=== PATIENT | male | born 1945 | race Caucasian/White ===

== ENCOUNTER 2019-02-23 00:18 | Inpatient (IN) | payer MEDICARE ==
[2019-02-23] MEDS ORDERED: niCARdipine 20MG In NaCl 0 MG/0 ML BAG ONE (00:45)
[2019-02-23 02:35] LABS: CKMB 3.1 ng/mL (0-6.6)
[2019-02-23 06:00] LABS: Critical Call Chem Troponin I RESULT DECREASING; Troponin I 0.356 ng/mL (< 0.028)
[2019-02-23 07:47] LABS: #Basophils 0.1 thou/uL (0.0-0.2); #Eosinphils 0.3 thou/uL (0.0-0.7); #Lymphocytes 2.1 thou/uL (1.20-3.40); #Monocytes 0.8 thou/uL (0.11-0.59); #Neutrophils 6.1 thou/uL (1.40-6.50); %Basophils 0.8 % (0.0-1.0); %Eosinophils 3.5 % (0.0-10.0); %Lymphocytes 22.8 % (21.0-51.0); %Monocytes 8.2 % (0.0-10.0); %Neutrophils 64.6 % (42.0-75.0); Hemoglobin 14.8 g/dL (14.0-18.0); Mean Corpuscular HGB CONC 34.7 g/dL (32.0-36.0); Mean Corpuscular Volume 92.4 fL (78.0-98.0); Mean Platelet Volume 8.1 fL (7.4-10.4); Platelet Count 238 thou/uL (130-400); RBC Distribution Width 12.5 % (11.5-14.5); Red Blood Cell (RBC) Count 4.61 mill/uL (4.70-6.10); White Blood Cell (WBC) Count 9.4 thou/uL (4.8-10.8)
[2019-02-23] MEDS ORDERED: Ondansetron PF 4 MG/2 ML Vial IVP PRN (07:52)
[2019-02-23 07:56] VITALS: BMI 24.4
[2019-02-23 08:05] LABS: Troponin I 0.264 ng/mL (< 0.028)
[2019-02-23 08:07] LABS: ALT (SGPT) 17 U/L (8-55); AST (SGOT) 16 U/L (5-34); Albumin 4.3 g/dL (3.4-4.8); Alkaline Phosphatase 57 U/L (40-110); Anion Gap 11 mmol/L (10-20); BUN (Urea Nitrogen) 15 mg/dL (8.4-25.7); Bilirubin, Total 0.3 mg/dL (0.2-1.2); Calc. Creatinine Clearance 63 mL/min (70-130); Calcium 9.7 mg/dL (7.8-10.44); Carbon Dioxide 25 mmol/L (23-31); Chloride 105 mmol/L (98-107); Estimated GFR-MDRD 69; Globulin 2.9 g/dL (2.4-3.5); Glucose 101 mg/dL (83-110); Protein, Total 7.2 g/dL (5.8-8.1); Sodium 137 mmol/L (136-145)
[2019-02-23] MEDS ORDERED: Morphine 2 MG/ML SYRINGE SLOW IVP PRN (08:33)
[2019-02-23 08:42] LABS: Cholesterol 252 mg/dl (< 200 Desired); HDL Cholesterol 28 mg/dL (>60 Neg Risk); Triglycerides 537 mg/dL (Less than 150)
[2019-02-23] MEDS ORDERED: Enoxaparin Sodium 80 MG/0.8 ML SYRINGE SC SCH (09:00)
--- NOTE | 2019-02-23 09:15 | HP ---
PRIMARY CARE PHYSICIAN: Aashish Benavides MD CHIEF COMPLAINT: Chest pain. HISTORY OF PRESENT ILLNESS: Mr. Salas is a pleasant 73-year-old man with past medical history of bradycardia and gastroesophageal reflux disease, presented to the [place] ER late last night due to chest pain, shortness of breath, and an elevated blood pressure. The patient states that he has been having this chest pain on and off over the last week that has more so been during times of activity. He states that the pain came on quite sharp last night while he was watching television. Therefore, he had taken 2 of his 's oral nitroglycerin and called 911. The EMS Services arrived and gave the patient 4 baby aspirin and transferred him to the local [place] ER. He was found to have an elevated troponin and there was a concern for NSTEMI. Therefore, the patient was treated with full-dose Lovenox and started on topical nitroglycerin for further chest pain. He was then transferred to this hospital and en route the patient's pain resolved. His troponins had trended up from 0.276 to 0.367 and then 0.356 late last night, however, the patient remained chest pain-free with nitro. In [place], he was also found to have an elevated blood pressure, which had also improved by the time he got to [facility]. He currently denies any fever, chills, headache, blurred vision, dizziness, chest pain, palpitations, shortness of breath, abdominal pain, nausea, or vomiting. The patient denies any history of hypertension or any other heart health issues in the past. REVIEW OF SYSTEMS: All other systems reviewed and found to be negative unless mentioned in the HPI. PAST MEDICAL HISTORY: History of bradycardia and gastroesophageal reflux disease. PAST SURGICAL HISTORY: He had a cyst removed on his gum about a month ago. PSYCHIATRIC HISTORY: None. SOCIAL HISTORY: The patient denies any alcohol, tobacco, or illicit drug use. He is a former tobacco smoker, but quit more than 10 years ago. KNOWN ALLERGIES: No known drug allergies. CURRENT HOME MEDICATIONS: Nexium 20 mg as needed for heartburn. PHYSICAL EXAMINATION: VITAL SIGNS: Blood pressure 156/77, pulse 64, respirations 16, temperature 97.6, and O2 saturation 95% on room air. GENERAL: The patient is awake, alert, and oriented x3. He is currently lying comfortably in bed and in no acute distress. HEENT: Atraumatic, normocephalic. Pupils are round and reactive to light. Extraocular muscles intact. Moist mucous membranes noted. NECK: Soft and supple. Trachea midline. CARDIOVASCULAR: Positive S1 and S2. Regular rate and rhythm. No murmur auscultated. RESPIRATORY: Clear to auscultation bilaterally. No wheezes, rales, or rhonchi. ABDOMEN: Soft, nontender. Bowel sounds present. EXTREMITIES: Moves all extremities equal. Pedal and radial pulses 2+ bilaterally. Strength 5+ bilaterally. No edema noted. NEUROLOGIC: Cranial nerves II through XII grossly intact. No focal deficits noted. Speech intact and normal. Gait not assessed. SKIN: Warm, dry, and intact. No rash. No ulceration noted. PSYCHIATRIC: Good mood and affect. LABORATORY DATA: WBC 9.4, RBC 4.61, hemoglobin 14.8, hematocrit 42.6, and platelets 238. Sodium 137, potassium 4.0, anion gap 11, BUN 15, creatinine 1.05, estimated GFR 69, magnesium 2.0, AST 16, and ALT 17. CK-MB 3.1. Troponin 0.276 to 0.367, 0.356. DIAGNOSTIC IMAGING: Portable chest x-ray showed no focal consolidation. ASSESSMENT AND PLAN: 1. Non-ST elevation myocardial infarction. The patient's troponins are elevated as high as 0.367. He is currently stable and chest pain-free with nitro. He will be treated with full-dose Lovenox 1 mg/kg b.i.d. We will also continue him on nitroglycerin as needed for chest pain and Cardiology Services, Dr. Allen is consulted at this time. 2. History of gastroesophageal reflux disease. Continue IV PPI. 3. History of bradycardia. His heart rate has been stable since he has been here and been in the 60s to 70s on the monitor. 4. Deep venous thrombosis and gastrointestinal prophylaxis. 5. Code status, full code. 6. Surrogate decision maker is his , Taniya. 7. Disposition, pending further workup and clinical findings and the patient's progress. Job ID: [id number]
[2019-02-23] MEDS: Aspirin 325 mg Enteric Coated Tablet PO SCH (09:47)
[2019-02-23] MEDS: Acetaminophen 325 MG TAB PO PRN (09:47)
[2019-02-23] MEDS: Enoxaparin Sodium 80 MG/0.8 ML SYRINGE SC SCH ×2 (09:47→20:27)
[2019-02-23] MEDS: Pantoprazole 40 MG VIAL IVP SCH (09:48)
[2019-02-23] MEDS ORDERED: Communication Order-Pharmacy FS SCH (12:00)
--- NOTE | 2019-02-23 18:25 | CON ---
DATE OF CONSULTATION: HISTORY OF PRESENT ILLNESS: Dajuan Salas is a 73-year-old white male, who denies any previous cardiac problems. He states approximately 1 week ago, he was taking a roof off of a house and had 1 minute of lower chest pressure. He then had another episode yesterday that prompted to go to the emergency room in [place]. This episode lasted 10 to 15 minutes. He took one of his 's sublingual nitroglycerin and the pain was resolving by the time paramedics arrived. By the time he arrived in the emergency room, the pain had resolved. He denies any recurrence of chest pain since being admitted. PAST MEDICAL HISTORY: Hyperlipidemia. He states that on Crestor 10 mg daily, he had muscle pain and so stopped taking it. He denies any history of hypertension or diabetes. MEDICATIONS: Nexium 40 mg daily. ALLERGIES: MUSCLE ACHES WITH STATINS. PAST SURGICAL HISTORY: Knee surgery, oral surgery 2 to 3 weeks ago, and right rotator cuff surgery. SOCIAL HISTORY: He stopped smoking in the 80s. He rarely drinks. FAMILY HISTORY: Mother had some type of heart problem. PHYSICAL EXAMINATION: VITAL SIGNS: Blood pressure 135/67 and pulse 63. HEENT: PERRL. NECK: Supple. CHEST: Clear. CARDIAC: S1 and S2 normal without any S3, S4, or murmurs. ABDOMEN: Normal bowel sounds without tenderness or organomegaly. EXTREMITIES: Revealed no clubbing, cyanosis, or edema. NEUROLOGIC: Grossly intact. SKIN: Warm and dry. LABORATORY DATA: There are no old EKGs available. EKGs in [place] as well as here all demonstrate anterolateral T-wave inversion. There is no ST-elevation. CBC is unremarkable. Sodium 137, potassium 4.2, chloride 105, carbon dioxide 25, BUN 15, creatinine 1.05. Troponin I is 0.367, cholesterol 252, triglycerides 537, and HDL 28. IMPRESSION: 1. [id number] myocardial infarction - anterolateral. 2. Hyperlipidemia, untreated due to muscle aches with statins. 3. Former smoker. 4. Positive family history. PLAN: Situation discussed with the patient and his . It was recommend that he undergo cardiac catheterization. He has already received a therapeutic dose of Lovenox and so this will have to await until Tuesday. Risks of catheterization were discussed with the patient's including , myocardial infarction, dye reaction, vascular injury, CVA, transfusion, limb loss, renal loss, etc. Risks of intervention with PTCA and stent placement were discussed including , myocardial infarction, emergent CABG, restenosis, stent thrombosis, vessel perforation, etc. He has no history of gastrointestinal bleeding or stroke. He has no upcoming surgical procedures and it was recommended that a drug-eluting stent would be placed if needed. Job ID: [id number] MTDD
[2019-02-23] MEDS: Atorvastatin Calcium 40 MG TAB PO SCH (20:27)
[2019-02-23] MEDS: Nitroglycerin 0.4 MG TAB (25 Tab Bottle) PO PRN ×2 (23:27→23:34)
[2019-02-24 05:13] LABS: #Basophils 0.1 thou/uL (0.0-0.2); #Eosinphils 0.4 thou/uL (0.0-0.7); #Lymphocytes 2.2 thou/uL (1.20-3.40); #Monocytes 0.7 thou/uL (0.11-0.59); #Neutrophils 4.6 thou/uL (1.40-6.50); %Basophils 0.7 % (0.0-1.0); %Eosinophils 4.9 % (0.0-10.0); %Lymphocytes 27.9 % (21.0-51.0); %Monocytes 9.3 % (0.0-10.0); %Neutrophils 57.3 % (42.0-75.0); Hemoglobin 14.9 g/dL (14.0-18.0); Mean Corpuscular HGB CONC 34.8 g/dL (32.0-36.0); Mean Corpuscular Volume 91.8 fL (78.0-98.0); Mean Platelet Volume 8.2 fL (7.4-10.4); Platelet Count 242 thou/uL (130-400); RBC Distribution Width 12.5 % (11.5-14.5); Red Blood Cell (RBC) Count 4.64 mill/uL (4.70-6.10)
[2019-02-24 05:39] LABS: Anion Gap 13 mmol/L (10-20); BUN (Urea Nitrogen) 17 mg/dL (8.4-25.7); Calc. Creatinine Clearance 63 mL/min (70-130); Calcium 9.6 mg/dL (7.8-10.44); Carbon Dioxide 22 mmol/L (23-31); Chloride 104 mmol/L (98-107); Estimated GFR-MDRD 70; Glucose 97 mg/dL (83-110); Potassium 3.8 mmol/L (3.5-5.1); Sodium 135 mmol/L (136-145)
[2019-02-24] MEDS: Aspirin 325 mg Enteric Coated Tablet PO SCH (08:49)
[2019-02-24] MEDS: Pantoprazole 40 MG VIAL IVP SCH (08:50)
[2019-02-24] MEDS: Enoxaparin Sodium 80 MG/0.8 ML SYRINGE SC SCH ×2 (08:50→20:57)
[2019-02-24] MEDS: Acetaminophen 325 MG TAB PO PRN (08:53)
--- NOTE | 2019-02-24 11:12 | PDOC.HOSPP ---
- Subjective Subjective: Doing fine now. Had an episode of CP last night that improved with nitro. No hx of heart problems. Guide Changer in [place] did workup 1.5 years ago. Included a stress test. All was normal. Had had two prior episodes similar to this one over the past several weeks. - Objective Vital Signs & Weight: Vital Signs (12 hours) Temp Pulse Resp BP Pulse Ox 02/24/19 07:50 92 L 02/24/19 07:38 97.8 F 60 16 142/84 H 92 L 02/24/19 04:00 97.4 F L 61 16 145/74 H 96 02/24/19 02:06 94 L 02/23/19 23:39 75 136/74 02/23/19 23:34 72 144/76 H 02/23/19 23:27 97.6 F 71 18 210/97 H 95 Weight Weight 160 lb 11.2 oz I&O: 02/23/19 02/24/19 02/25/19 06:59 06:59 06:59 Intake Total 600 300 Balance 600 300 Result Diagrams: 02/24/19 04:50 02/24/19 04:50 Hospitalist ROS - Medication Medications: Active Medications Generic Name Dose Route Start Last Admin Trade Name Freq PRN Reason Stop Dose Admin Acetaminophen 650 mg 02/23/19 08:17 02/24/19 08:53 Tylenol PO 650 mg Q6H PRN Administration Fever/Mild Pain Aspirin 325 mg 02/23/19 09:00 02/24/19 08:49 Ecotrin PO 325 mg DAILY MARIA TERESA Administration Atorvastatin Calcium 40 mg 02/23/19 21:00 02/23/19 20:27 Lipitor PO 40 mg HS MARIA TERESA Administration Enoxaparin Sodium 70 mg 02/23/19 09:00 02/24/19 08:50 Lovenox SC 02/25/19 22:00 70 mg 0900,2100 MARIA TERESA Administration Nitroglycerin 0.4 mg 02/23/19 07:14 02/23/19 23:34 Nitrostat PO 0.4 mg Q5MIN PRN Administration Chest Pain Pantoprazole Sodium 40 mg 02/23/19 09:00 02/24/19 08:50 Protonix IVP 40 mg DAILY MARIA TERESA Administration Sodium Chloride 10 ml 02/23/19 09:00 02/24/19 08:50 Flush - Normal Saline IVF 10 ml Q12HR MARIA TERESA Administration - Exam General Appearance: NAD, awake alert Heart: RRR, no murmur, no gallops, no rubs, normal peripheral pulses Respiratory: CTAB, no wheezes, no rales, no ronchi, normal chest expansion, no tachypnea, normal percussion Gastrointestinal: soft, non-tender, non-distended, normal bowel sounds, no palpable masses, no hepatomegaly, no splenomegaly, no bruit Extremities: no cyanosis, no clubbing, no edema Skin: normal turgor, no lesions, no rashes Musculoskeletal: normal tone, normal strength, no muscle wasting Psychiatric: normal affect, normal behavior, A&O x 3 Hosp A/P (1) Myocardial infarction Code(s): I21.9 - ACUTE MYOCARDIAL INFARCTION, UNSPECIFIED Status: Acute (2) Cardiomyopathy Code(s): I42.9 - CARDIOMYOPATHY, UNSPECIFIED Status: Acute (3) GERD (gastroesophageal reflux disease) Code(s): K21.9 - GASTRO-ESOPHAGEAL REFLUX DISEASE WITHOUT ESOPHAGITIS Status: Acute (4) Diastolic dysfunction Code(s): I51.89 - OTHER ILL-DEFINED HEART DISEASES Status: Acute - Plan NSTEMI II. Plan for cath on Tuesday. Has reduced EF and diastolic dysfunction on echo (EF 45%) Aspirin, statin, nitrates. Cardiology following.
[2019-02-24] MEDS: Atorvastatin Calcium 40 MG TAB PO SCH (20:57)
[2019-02-25 05:10] LABS: #Basophils 0.1 thou/uL (0.0-0.2); #Eosinphils 0.3 thou/uL (0.0-0.7); #Lymphocytes 2.1 thou/uL (1.20-3.40); #Monocytes 0.9 thou/uL (0.11-0.59); %Basophils 1.3 % (0.0-1.0); %Eosinophils 3.8 % (0.0-10.0); %Lymphocytes 24.8 % (21.0-51.0); %Monocytes 10.3 % (0.0-10.0); %Neutrophils 59.8 % (42.0-75.0); Hemoglobin 15.6 g/dL (14.0-18.0); Mean Corpuscular HGB CONC 34.4 g/dL (32.0-36.0); Mean Corpuscular Hemoglobin 31.9 pg (27.0-31.0); Mean Corpuscular Volume 92.7 fL (78.0-98.0); Mean Platelet Volume 7.8 fL (7.4-10.4); Platelet Count 232 thou/uL (130-400); RBC Distribution Width 12.4 % (11.5-14.5); Red Blood Cell (RBC) Count 4.88 mill/uL (4.70-6.10); White Blood Cell (WBC) Count 8.4 thou/uL (4.8-10.8)
[2019-02-25 05:36] LABS: Anion Gap 14 mmol/L (10-20); BUN (Urea Nitrogen) 16 mg/dL (8.4-25.7); Calc. Creatinine Clearance 54 mL/min (70-130); Calcium 9.5 mg/dL (7.8-10.44); Carbon Dioxide 22 mmol/L (23-31); Chloride 105 mmol/L (98-107); Estimated GFR-MDRD 58; Glucose 103 mg/dL (83-110); Potassium 4.1 mmol/L (3.5-5.1); Sodium 137 mmol/L (136-145)
[2019-02-25] MEDS: Enoxaparin Sodium 80 MG/0.8 ML SYRINGE SC SCH ×2 (09:24→20:28)
[2019-02-25] MEDS: Aspirin 325 mg Enteric Coated Tablet PO SCH (09:24)
[2019-02-25] MEDS: Pantoprazole 40 MG VIAL IVP SCH (09:27)
[2019-02-25] MEDS: Atorvastatin Calcium 40 MG TAB PO SCH (20:28)
[2019-02-25] MEDS: Nitroglycerin 0.4 MG TAB (25 Tab Bottle) PO PRN (22:39)
[2019-02-25] MEDS: Acetaminophen 325 MG TAB PO PRN (22:46)
[2019-02-26] MEDS ORDERED: Sodium Chloride 0.9% 1,000 ML IV SCH (06:00)
[2019-02-26] MEDS ORDERED: Lidocaine 1% (PF) 30 ML VIAL ONE (06:44)
[2019-02-26] MEDS ORDERED: Heparin 10,000 UNITS/1 ML VIAL ONE (06:45)
[2019-02-26] MEDS ORDERED: Fentanyl 100 MCG/2 ML VIAL ONE (07:11)
[2019-02-26] MEDS ORDERED: Midazolam HCl 2 mg/2 ml Vial ONE (07:12)
[2019-02-26] MEDS ORDERED: Acetaminophen/Codeine 30-300mg Tablet PO PRN ×2 (07:48)
[2019-02-26] MEDS ORDERED: Nitroglycerin 0.4 MG TAB (25 Tab Bottle) SL PRN (07:48)
[2019-02-26] MEDS ORDERED: Sodium Chloride 0.9% 200 ML IV PRN (07:48)
[2019-02-26] MEDS: Nitroglycerin 0.4 MG TAB (25 Tab Bottle) PO PRN (08:17)
[2019-02-26] MEDS: Sodium Chloride 0.9% 1,000 ML IV SCH ×3 (10:12→23:32)
[2019-02-26] MEDS: Pantoprazole 40 MG VIAL IVP SCH (10:13)
[2019-02-26] MEDS: Aspirin 325 mg Enteric Coated Tablet PO SCH (10:59)
[2019-02-26] MEDS: Metoprolol Tartrate 25 MG TAB PO SCH ×2 (10:59→21:34)
[2019-02-26] MEDS: Nitroglycerin 2% Ointment 1 INCH/1 GM Packet TOP SCH ×2 (11:06→21:34)
[2019-02-26] MEDS ORDERED: Communication Order-Pharmacy FS ONE (14:36)
[2019-02-26 15:29] LABS: INR-International Normal Ratio 1.5; Prothrombin Time 17.6 SEC (12.0-14.7)
--- NOTE | 2019-02-26 16:13 | PDOC.HOSPP ---
- Subjective Subjective: Doing ok. Tolerated the cath well. A little disappointed in the results. Has said several times that he never had any heart problems. - Objective Vital Signs & Weight: Vital Signs (12 hours) Temp Pulse Resp BP BP BP Pulse Ox 02/26/19 15:44 97.6 F 59 L 18 134/66 02/26/19 11:33 97.4 F L 67 18 142/68 H 91 L 02/26/19 08:00 97.5 F L 66 18 145/72 H 145/72 H 96 Weight Weight 160 lb 11.2 oz I&O: 02/25/19 02/26/19 02/27/19 06:59 06:59 06:59 Intake Total 1630 Balance 1630 Result Diagrams: 02/25/19 04:59 02/25/19 04:59 Hospitalist ROS - Medication Medications: Active Medications Generic Name Dose Route Start Last Admin Trade Name Freq PRN Reason Stop Dose Admin Acetaminophen 650 mg 02/23/19 08:17 02/25/19 22:46 Tylenol PO 02/27/19 08:30 650 mg Q6H PRN Administration Fever/Mild Pain Aspirin 325 mg 02/23/19 09:00 02/26/19 10:59 Ecotrin PO 02/27/19 08:30 325 mg DAILY MARIA TERESA Administration Atorvastatin Calcium 40 mg 02/23/19 21:00 02/25/19 20:28 Lipitor PO 02/27/19 08:30 40 mg HS MARIA TERESA Administration Sodium Chloride 1,000 mls @ 125 mls/hr 02/26/19 07:50 02/26/19 14:49 Normal Saline 0.9% IV 02/27/19 08:30 1,000 mls .Q8H MARIA TERESA Administration Metoprolol Tartrate 25 mg 02/26/19 09:00 02/26/19 10:59 Lopressor PO 25 mg BID MARIA TERESA Administration Nitroglycerin 1 inch 02/26/19 09:00 02/26/19 11:06 Nitro-Bid 2% Ointment TOP 02/27/19 08:30 1 inch BID MARIA TERESA Administration Pantoprazole Sodium 40 mg 02/23/19 09:00 02/26/19 10:13 Protonix IVP 02/27/19 08:30 40 mg DAILY MARIA TERESA Administration Sodium Chloride 10 ml 02/23/19 09:00 02/26/19 10:13 Flush - Normal Saline IVF 02/27/19 08:30 10 ml Q12HR MARIA TERESA Administration - Exam General Appearance: NAD, awake alert Heart: RRR, no murmur, no gallops, no rubs, normal peripheral pulses Respiratory: CTAB, no wheezes, no rales, no ronchi, normal chest expansion, no tachypnea, normal percussion Gastrointestinal: soft, non-tender, non-distended, normal bowel sounds, no palpable masses, no hepatomegaly, no splenomegaly, no bruit Extremities: no cyanosis, no clubbing, no edema Skin: normal turgor, no lesions, no rashes Musculoskeletal: normal tone, normal strength, no muscle wasting Psychiatric: normal affect, normal behavior, A&O x 3 Hosp A/P (1) Myocardial infarction Code(s): I21.9 - ACUTE MYOCARDIAL INFARCTION, UNSPECIFIED Status: Acute (2) Cardiomyopathy Code(s): I42.9 - CARDIOMYOPATHY, UNSPECIFIED Status: Acute (3) GERD (gastroesophageal reflux disease) Code(s): K21.9 - GASTRO-ESOPHAGEAL REFLUX DISEASE WITHOUT ESOPHAGITIS Status: Acute (4) Diastolic dysfunction Code(s): I51.89 - OTHER ILL-DEFINED HEART DISEASES Status: Acute - Plan NSTEMI II. Severe CAD. Has reduced EF and diastolic dysfunction on echo (EF 45%) Aspirin, statin, nitrates. Cardiology following. CV surgery consulted for CABG.
[2019-02-26] MEDS ORDERED: Docusate 100 MG CAP PO SCH (21:00)
[2019-02-26] MEDS: Atorvastatin Calcium 40 MG TAB PO SCH (21:34)
--- NOTE | 2019-02-26 21:37 | ULT ---
BILATERAL CAROTID DUPLEX ULTRASOUND: HISTORY: Bilateral carotid artery bruits. Preoperative evaluation prior to CABG. TECHNIQUE: Grayscale, color-flow and spectral Doppler ultrasound imaging of the extracranial carotid artery syst ems was performed bilaterally. FINDINGS: There is significant calcified atherosclerotic plaque seen in the region of the right carotid bulb an d proximal right internal carotid artery with calcified atherosclerotic plaque also seen in the region of the left carotid bulb. There is moderate (50-69%) stenosis involving the bilateral internal carotid arteries primarily based on the peak systolic velocities. The peak systolic velocity in the right ICA is 202.1 cm/s with an ICA/CCA ratio on the right at 1.74. The peak systolic velocity in the left ICA is 144.4 cm/s with a l eft ICA/CCA ratio of 1.04. However, there is limited assessment of peak systolic velocity measurements at the level of shadowing atherosclerotic vascular calcifications in each proximal inter nal carotid artery. Vertebral arteries: Antegrade flow is demonstrated in the vertebral arteries bilaterally. IMPRESSION: 1. Significantly calcified atherosclerotic plaques involving the proximal bilateral internal carotid arteries which limits adequate evaluation at these levels. Otherwise, based on peak systolic velocity measurements in each internal carotid artery, there is moderate (50-69%) stenosis involving the bilateral internal carotid arteries.
--- NOTE | 2019-02-26 22:38 | CON ---
DATE OF CONSULTATION: 02/26/2019 REQUESTING PHYSICIAN: Dr. Allen. PRIMARY CARE PHYSICIAN: Aashish Benavides MD. CHIEF COMPLAINT: Chest pain and shortness of breath. HISTORY OF PRESENT ILLNESS: The patient is a 73-year-old man with minimal past medical history. He in retrospect over the last several months has been noticing decreasing exercise tolerance and some dyspnea on exertion. Last week, he was doing some fairly vigorous physical activity, cutting down couple of trees and digging out the roots when he experienced an episode of chest pain associated with his shortness of breath that subsided, but this past Tuesday, he had another episode while watching television. He took one of his 's sublingual nitroglycerins and called EMS. The pain had improved by the time they arrived. He was initially taken to the ER in [place] where he had a mildly elevated troponin and was transferred here. By the time he arrived here, he was pain free and his troponins were beginning to trend down. In the hospital however, he has had almost daily episodes of mild chest pain. In looking through his vital signs, he has also had nightly spikes and his blood pressure with systolics of around 210 and diastolics of around 100, whereas most of the time he runs in the 135-160/165 to 180 range. PAST MEDICAL HISTORY: Significant for GE reflux. HOME MEDICATION: His only home medication is Nexium. CURRENT MEDICATIONS: 1. Adult aspirin. 2. Lipitor 40 mg daily. 3. Lopressor 25 mg b.i.d. 4. An inch of nitroglycerin paste b.i.d. 5. IV Protonix. ALLERGIES: HE HAS NO KNOWN DRUG ALLERGIES, BUT IN THE PAST DEVELOPED MUSCLE PAIN ON CRESTOR 10 MG DAILY. SOCIAL HISTORY: He quit smoking in the . FAMILY HISTORY: He thinks that his mother had some sort of heart problem. REVIEW OF SYSTEMS: The patient denies any eye, speech, facial, or extremity symptoms consistent with TIAs. Shortness of breath as described in the HPI. No orthopnea. No PND. No dependent edema. He does report that the bottoms of his feet will have a burning sensation when he walks. PHYSICAL EXAMINATION: GENERAL: He is 5 feet 8 inches and weighs 116 and 3/4 pounds, heart rate 67, blood pressure 142/68, temperature is 97.4. He has bilateral carotid bruits. CHEST: Clear to auscultation. He has regular rate and rhythm. ABDOMEN: Soft and nontender. EXTREMITIES: He has palpable radial, femoral, and dorsalis pedis pulses bilaterally. He has bruits associated with both of his femorals. His right femoral pulse is somewhat weak. His left femoral pulse is faint. Both have good capillary refill. He has no clubbing, cyanosis, or edema. LABORATORY DATA: His white count is 9.4, hemoglobin 14.8, hematocrit 42.6, platelets 238,000. Chemistries are normal. Glucose 101, BUN 15, creatinine 1.05. LFTs were normal. Calcium 9.2, albumin 4.3, magnesium 2.0. Triglycerides were 537, cholesterol 252, HDL 28. His troponin 1st here was 0.356 and then followup about 2.5 hours later was 0.264. His EKG showed inverted T-waves in leads 1, aVL, and V2 through V6. His rotated film shows some prominent markings. No obvious aortic calcifications or cardiomegaly. His cardiac catheterization shows a right-dominant system with about a 50% or 60% distal left main lesion and a 95% lesion in his mid LAD. He has about a 70% lesion in his circumflex immediately prior to a modest size OM1 and a tiny OM2. His PDA has about 70% or 80% lesion. LVEF is around 40-50 percent with some inferior apical hypokinesis. LV pressure was measured at 140 over -1 with an EDP of 5. Aortic pressure was 125/40 with a mean of 72. IMPRESSION AND RECOMMENDATION: Modest left main disease with a very high-grade mid left anterior descending artery lesion in a patient with a non-ST elevation MO and post infarction angina. I am going to check screening carotid ultrasonography to help with intraoperative management, although his carotids are asymptomatic. PLAN: I will plan on coronary artery bypass grafting. Job ID: [id number]
--- NOTE | 2019-02-26 23:06 | EKG ---
Test Reason : Blood Pressure : / mmHG Vent. Rate : 060 BPM Atrial Rate : 060 BPM P-R Int : 166 ms QRS Dur : 086 ms QT Int : 436 ms P-R-T Axes : 038 032 133 degrees QTc Int : 436 ms Normal sinus rhythm Left ventricular hypertrophy with repolarization abnormality Abnormal ECG When compared with ECG of 18-MAR-2006 12:02, ST now depressed in Anterior leads T wave inversion now evident in Anterolateral leads Confirmed by SANTY MOON M.D. ([id number]) on 02/26/2019 11:05:35 PM Referred By: REGINA PAYAN Confirmed By:SANTY MOON M.D.
--- NOTE | 2019-02-26 23:14 | EKG ---
Test Reason : STAT Blood Pressure : / mmHG Vent. Rate : 076 BPM Atrial Rate : 076 BPM P-R Int : 168 ms QRS Dur : 086 ms QT Int : 432 ms P-R-T Axes : 054 044 156 degrees QTc Int : 486 ms Normal sinus rhythm Prolonged QT Abnormal ECG When compared with ECG of 23-FEB-2019 08:49, (Unconfirmed) QT has lengthened Confirmed by SANTY MOON M.D. ([id number]) on 02/26/2019 11:14:20 PM Referred By: Confirmed By:SANTY MOON M.D.
[2019-02-27] MEDS: Metoprolol Tartrate 25 MG TAB PO SCH (05:43)
[2019-02-27] MEDS ORDERED: CEFAZOLIN 2 GM in Premix Bag 1 BAG IVPB SCH (07:22)
[2019-02-27] MEDS ORDERED: Fentanyl 100 MCG/2 ML VIAL ONE (08:33)
[2019-02-27] MEDS ORDERED: Midazolam HCl 2 mg/2 ml Vial ONE (08:33)
[2019-02-27] MEDS ORDERED: Vecuronium 10 MG VIAL ONE ×2 (08:34→15:27)
[2019-02-27] MEDS ORDERED: Midazolam HCl 5 mg/5 ml Vial ONE (08:34)
[2019-02-27] MEDS ORDERED: Dexmedetomidine 200 MCG/2 ML VIAL ONE (08:34)
[2019-02-27] MEDS ORDERED: Albumin 5% 500 ML ONE (08:35)
[2019-02-27] MEDS ORDERED: Heparin 10,000 UNITS/1 ML VIAL 30,000 UNITS in Sodium Chloride 0.9% 1,000 ML FS SCH (09:30)
[2019-02-27] MEDS ORDERED: Insulin Regular 300 UNITS/3 ML VIAL ONE (13:57)
[2019-02-27] MEDS ORDERED: PHENYLEPHRINE-NS 100 MCG/ML 10 ML SYRINGE ONE ×2 (14:59→15:27)
[2019-02-27] MEDS ORDERED: Cardioplegic Soln 1,000 ML BAG ONE (15:27)
[2019-02-27] MEDS ORDERED: Dexamethasone 20 MG/5 ML VIAL ONE (15:27)
[2019-02-27] MEDS ORDERED: Thrombin 5000 UNITS/5 ML VIAL ONE (15:27)
[2019-02-27] MEDS ORDERED: Lidocaine 2% PF 100 mg/5 ml Syringe ONE (15:27)
[2019-02-27] MEDS ORDERED: Protamine Sulfate 250 MG/25 ML VIAL ONE (15:27)
[2019-02-27] MEDS ORDERED: Ondansetron PF 4 MG/2 ML Vial ONE (15:27)
[2019-02-27] MEDS ORDERED: Papaverine 60 MG/2 ML VIAL ONE (15:27)
[2019-02-27] MEDS ORDERED: Mannitol 12.5 GM/50 ML ONE (15:27)
[2019-02-27] MEDS ORDERED: ePHEDrine 50 MG/ML VIAL ONE (15:27)
[2019-02-27] MEDS ORDERED: Ketorolac Tromethamine 30 MG/ML VIAL ONE (15:27)
[2019-02-27] MEDS ORDERED: PROPOFOL 200 MG/20 ML VIAL ONE (15:27)
[2019-02-27] MEDS ORDERED: Heparin 5,000 UNITS/ML VIAL ONE (15:27)
[2019-02-27] MEDS ORDERED: Glycopyrrolate 0.2 MG/ML 5 ML SYRINGE ONE (15:27)
[2019-02-27] MEDS ORDERED: Heparin 30,000 units/30 ml VIAL ONE (15:27)
[2019-02-27] MEDS ORDERED: Magnesium 5 GM/10 ML VIAL ONE (15:27)
[2019-02-27] MEDS ORDERED: Sodium Bicarb 50 MEQ/50 ML VIAL ONE (15:27)
[2019-02-27] MEDS ORDERED: Potassium Chloride 60 MEQ/30 ML VIAL ONE (15:27)
[2019-02-27] MEDS ORDERED: Calcium Chloride 1 GM/10 ML Abboject SYRINGE ONE (15:27)
[2019-02-27] MEDS ORDERED: Aminocaproic Acid 5 GM/20 ML VIAL ONE (15:27)
[2019-02-27] MEDS ORDERED: Nitroglycerin 50 MG/250 ML BOT ONE (15:27)
[2019-02-27] MEDS ORDERED: Albumin 5% 250 ML ONE (16:20)
[2019-02-27] MEDS ORDERED: Dextrose 50% Abboject 50 ML SYRINGE SLOW IVP PRN ×2 (16:26→17:03)
[2019-02-27] MEDS ORDERED: HUMULIN R 100 UNITS in Sodium Chloride 0.9% 100 ML IVPB SCH ×2 (16:26→17:03)
[2019-02-27] MEDS ORDERED: Insulin Regular 300 UNITS/3 ML VIAL SC PRN ×2 (16:26→17:03)
[2019-02-27] MEDS ORDERED: Dextrose 5% in Water 1,000 ML IV PRN ×2 (16:26→17:03)
[2019-02-27] MEDS ORDERED: Albumin 5% 250 ML IVPB SCH (16:30)
[2019-02-27] MEDS ORDERED: hydrALAZINE 20 MG/ML VIAL SLOW IVP PRN (16:51)
[2019-02-27] MEDS ORDERED: Mag-Al 1200 mg/1200 mg/30 ML UDCUP PO PRN (16:51)
[2019-02-27] MEDS ORDERED: Nitroglycerin 50 MG/250 ML BOT 250 ML IVPB PRN (16:51)
[2019-02-27] MEDS ORDERED: Post-Op Insulin Drip Protocol IVPB ONE (16:51)
[2019-02-27] MEDS ORDERED: Bisacodyl 5 MG TAB PO PRN (16:51)
[2019-02-27] MEDS ORDERED: Fentanyl 100 MCG/2 ML VIAL SLOW IVP PRN (16:51)
[2019-02-27] MEDS ORDERED: Acetaminophen 325 MG TAB PO PRN (16:51)
[2019-02-27] MEDS ORDERED: HYDROcodone/Acetaminophen 5/325 mg Tablet PO PRN (16:51)
[2019-02-27] MEDS ORDERED: Morphine 2 MG/ML SYRINGE SLOW IVP PRN (16:51)
[2019-02-27] MEDS ORDERED: niCARdipine 25 MG in Sodium Chloride 0.9% 250 ML 240 ML IVPB PRN (16:51)
[2019-02-27] MEDS ORDERED: Promethazine HCl 25 MG/ML VIAL IM PRN (16:51)
[2019-02-27] MEDS ORDERED: Hetastarch 6% 500 ML 500 ML IVPB PRN (16:51)
[2019-02-27] MEDS ORDERED: Bisacodyl 10 MG SUPP PR PRN (16:51)
[2019-02-27] MEDS ORDERED: Norepinephrine 8 MG/0.9% NS 250 ML IVPB PRN (16:51)
[2019-02-27] MEDS ORDERED: Guaifenesin DM 100-10/5 ML UDCUP PO PRN (16:51)
[2019-02-27] MEDS ORDERED: Potassium Chloride 20 MEQ/100 ML PREMIX BAG IVPB PRN (16:51)
[2019-02-27] MEDS ORDERED: DOPamine 400 MG/D5W 250 ML 0 ML ONE (16:53)
[2019-02-27] MEDS ORDERED: Norepinephrine 8 MG in Dextrose 5% in Water 242 ML IVPB PRN (16:56)
[2019-02-27 16:59] LABS: #Eosinphils 0.1 thou/uL (0.0-0.7); #Lymphocytes 0.9 thou/uL (1.20-3.40); #Monocytes 1.5 thou/uL (0.11-0.59); #Neutrophils 15.1 thou/uL (1.40-6.50); %Basophils 0.1 % (0.0-1.0); %Eosinophils 0.4 % (0.0-10.0); %Lymphocytes 4.9 % (21.0-51.0); %Monocytes 8.4 % (0.0-10.0); %Neutrophils 86.1 % (42.0-75.0); Hemoglobin 12.8 g/dL (14.0-18.0); Mean Corpuscular HGB CONC 33.9 g/dL (32.0-36.0); Mean Corpuscular Hemoglobin 31.9 pg (27.0-31.0); Mean Platelet Volume 8.3 fL (7.4-10.4); Platelet Count 188 thou/uL (130-400); RBC Distribution Width 12.5 % (11.5-14.5); Red Blood Cell (RBC) Count 4.01 mill/uL (4.70-6.10); White Blood Cell (WBC) Count 17.5 thou/uL (4.8-10.8)
[2019-02-27 17:06] LABS: INR-International Normal Ratio 1.4; PTT 30.5 SEC (22.9-36.1); Prothrombin Time 16.7 SEC (12.0-14.7)
[2019-02-27] MEDS: Fentanyl 100 MCG/2 ML VIAL SLOW IVP PRN ×2 (17:08→18:30)
--- NOTE | 2019-02-27 17:08 | RAD ---
EXAM: CHEST ONE VIEW HISTORY: Post open heart surgery COMPARISON: 02/22/2019 FINDINGS: There has been interval postsurgical changes with median sternotomy wires now present. A right subcla vian central venous catheter is noted in place with tip overlying the region of the cavoatrial junction. Mediastinal drains and left-sided thoracostomy tube are noted in place. No pleural effusion or pneumothorax is appreciated. There is volume loss present at the left lung base. Vascular calcifications are seen in the thoracic aorta. No other interval change. IMPRESSION: Interval postoperative changes with lines and tubes in place as described above. There is volume loss at the left lung base.
[2019-02-27] MEDS: Ondansetron PF 4 MG/2 ML Vial IVP PRN (17:09)
[2019-02-27] MEDS: Sodium Chloride 0.9% 1,000 ML IV SCH ×2 (17:10→17:11)
--- NOTE | 2019-02-27 17:11 | PDOC.HOSPP ---
- Subjective Subjective: Doing ok post-CABG. Still somnolent. - Objective Vital Signs & Weight: Weight Weight 160 lb 11.2 oz Result Diagrams: 02/27/19 16:23 02/25/19 04:59 Additional Labs: Accuchecks 02/27/19 02/27/19 02/27/19 15:26 14:53 13:58 POC Glucose 149 H 160 H 191 H 02/27/19 02/27/19 02/27/19 13:35 12:51 12:01 POC Glucose 200 H 152 H 147 H 02/27/19 09:45 POC Glucose 110 Hospitalist ROS - Medication Medications: Active Medications Generic Name Dose Route Start Last Admin Trade Name Freq PRN Reason Stop Dose Admin Fentanyl 25 mcg 02/27/19 16:51 02/27/19 17:08 Sublimaze SLOW IVP 03/01/19 15:56 25 mcg Q2H PRN Administration Moderate Pain (4-6) Insulin Human Regular 100 101 mls @ 0 mls/hr 02/27/19 16:26 02/27/19 16:57 units/ Sodium Chloride IVPB 101 mls INF MARIA TERESA Administration Protocol As Directed Ondansetron HCl 4 mg 02/27/19 16:51 02/27/19 17:09 Zofran IVP 4 mg Q6H PRN Administration Nausea/Vomiting - Exam General Appearance: NAD, awake alert Heart: RRR, no murmur, no gallops, no rubs, normal peripheral pulses Respiratory: CTAB, no wheezes, no rales, no ronchi, normal chest expansion, no tachypnea, normal percussion Gastrointestinal: soft, non-tender, non-distended, normal bowel sounds, no palpable masses, no hepatomegaly, no splenomegaly, no bruit Skin: normal turgor, no lesions, no rashes Psychiatric - other findings: Sedation Hosp A/P (1) Myocardial infarction Code(s): I21.9 - ACUTE MYOCARDIAL INFARCTION, UNSPECIFIED Status: Acute (2) Cardiomyopathy Code(s): I42.9 - CARDIOMYOPATHY, UNSPECIFIED Status: Acute (3) GERD (gastroesophageal reflux disease) Code(s): K21.9 - GASTRO-ESOPHAGEAL REFLUX DISEASE WITHOUT ESOPHAGITIS Status: Acute (4) Diastolic dysfunction Code(s): I51.89 - OTHER ILL-DEFINED HEART DISEASES Status: Acute (5) CAD (coronary artery disease) Code(s): I25.10 - ATHSCL HEART DISEASE OF [place] CORONARY ARTERY W/O ANG PCTRS Status: Acute (6) HLD (hyperlipidemia) Code(s): E78.5 - HYPERLIPIDEMIA, UNSPECIFIED Status: Acute - Plan NSTEMI II. Severe CAD. Has reduced EF and diastolic dysfunction on echo (EF 45%) Aspirin, statin, nitrates. S/P CABG. In CCU. Paced, Levophed. Drains in place. CVS and Cards following. Will need aggressive intervention for cholesterol when taking po's.
[2019-02-27 17:18] LABS: Anion Gap 13 mmol/L (10-20); BUN (Urea Nitrogen) 14 mg/dL (8.4-25.7); Calc. Creatinine Clearance 63 mL/min (70-130); Calcium 7.8 mg/dL (7.8-10.44); Carbon Dioxide 19 mmol/L (23-31); Chloride 113 mmol/L (98-107); Estimated GFR-MDRD 69; Glucose 173 mg/dL (83-110); Sodium 141 mmol/L (136-145)
--- NOTE | 2019-02-27 18:06 | OP ---
DATE OF PROCEDURE: 02/27/2019 PROCEDURES PERFORMED: Coronary artery bypass grafting x4 with left internal mammary artery to the distal left anterior descending, reverse greater saphenous vein graft from the aorta to the first obtuse marginal, reverse greater saphenous vein graft from the OM1 graft to the OM2, and reverse greater saphenous vein graft from the aorta to the patent ductus arteriosus. PREOPERATIVE DIAGNOSIS: Left main coronary artery disease with post infarction angina. POSTOPERATIVE DIAGNOSIS: Left main coronary artery disease with post infarction angina. ANESTHESIA: General endotracheal anesthesia. INDICATIONS: The patient is a 73-year-old man who in retrospect been having some dyspnea on exertion, decreasing exercise tolerance for several months. He recently had an episode of chest pain and shortness of breath during strenuous physical exertion. It resolved, but when he had an episode a few days later while sitting watching television, he called EMS. While his pain resolved shortly after arrival at the hospital, he had a positive troponin and post infarction, he had few episodes of chest pain at rest. Cardiac catheterization demonstrated severe 3-vessel coronary artery disease including a very high-grade mid LAD lesion and about a 60% left main lesion. He had mildly reduced to low normal LV systolic function. He is now taken to the operating room for surgical revascularization. FINDINGS: Pump time 131 minute. Cross-clamp time 85 minutes. Good quality MILLY that was somewhat small distally. The greater saphenous vein in the thigh was good quality and good size. Below the knee, it was reasonably good quality, but rather small. The LAD was about a 1.5 mm good quality vessel. The OM1 proximally was about 2.5 mm vessel and distally about 1.5 mm. Overall, while it got better quality distally, it was a fairly poor quality intramyocardial vessel. The OM2 was fairly good quality, but only about 1 to 1.5 mm. The PDA had a scattered palpable plaque with the bulk of it fairly proximal, it was about 1.5 mm vessel grafted. The pericardium was closed. DESCRIPTION OF PROCEDURE: After informed consent was obtained, the patient was taken to the operating room, placed in supine position on the operating table. After the induction of general anesthesia, greater saphenous vein was ultrasonographically mapped and marked in his left lower extremity. His right upper chest was then prepped and draped in sterile fashion and he was placed in Trendelenburg. A triple-lumen central line kit was used to place a right subclavian central line by the Seldinger technique. All 3 ports easily aspirated and flushed. The line was secured with suture. The patient's torso, groins, and lower extremities were prepped and draped in sterile fashion. The greater saphenous vein was exposed through a small incision just above the knee. It was smaller than anticipated based upon the ultrasonographic examination. The area was explored locally in the vessel followed to ascertain that it was indeed the greater saphenous vein. It was then endoscopically harvested to the groin and dividing it proximally utilizing a small stab incision in the groin and a transfixing silk ligature. While it was feasible to do much of the dissection endoscopically, harvest of the vein below the knee ultimately required conversion to a skin bridge technique. The vein below the knee was very small, though of reasonable quality. The leg incisions were closed in layers of subcutaneous and subcuticular Vicryl. A median sternotomy was performed. The left MILLY was mobilized as a skeletonized in-situ graft from the level of the xiphoid to the level of the subclavian vein through an extrapleural exposure. The patient was heparinized. The mammary was ligated and divided distally. The mammary was rather small distally, but it flowed well and it dilated nicely with instilled intraluminally with papaverine solution. The mammary bed was inspected for hemostasis and the medial reflections of the pleura were mobilized. The MILLY retractor was replaced with a Randhawa retractor. The pericardium was opened and marsupialized. The aorta was palpated and was soft. The heart was somewhat large. The pericardial reflection was taken down to allow for cannulation at the base of the arch given the relatively short intrapericardial aorta relative to the prominence of the epicardial fat pad. A double concentric pursestring of 2-0 Ethibond was placed in the ascending aorta at the base of the arch and a single pursestring was placed in the right atrial appendage. Aortic and venous cannulae were inserted and secured by the pursestrings. Cardiopulmonary bypass was instituted and the patient was systemically cooled. The heart was examined, and the vessels to be bypassed were identified. A longitudinal slit was made in the pericardium anterior to the left phrenic nerve, there was mammary could be passed. An aortic cross-clamp was applied and cardioplegia was administered through an aortic root needle. When arrest had been achieved, attention was turned to the PDA. It was exposed and opened just distal to the palpable heavy plaquing. Reverse greater saphenous vein was anastomosed there end-to-side with running 6-0 Prolene suture and the anastomosis tested by flushing cold cardioplegia down the graft. Attention was then turned to the circumflex system. The OM1 was rather larger than had been anticipated. It was a seriously diseased vessel and ran intramyocardially. The OM2 was a little bit larger than anticipated, but proved to be still rather small vessel. Upon opening the OM1, the extent of the plaque in it necessitated rather long arteriotomy and the initial plan to sequence the 2 with 1 piece of vein was abandoned, because the size of the OM1 arteriotomy simply was not amenable to it. The remaining segment of thigh vein was anastomosed there end-to-side and then the small caliber vein from below the knee was anastomosed to the OM2. Because of the length of that vein was somewhat short, trying to bring that vein off the OM1 graft. On the beating heart, it was going to be rather problematic and was elected to construct that end-to-side anastomosis under clamp. Additional cardioplegia was administered prior to opening the LAD. The mammary was anastomosed there with running 7-0 Prolene and tacked to the epicardium. The aortic cross-clamp was replaced with a partial occluding clamp and aortotomy was made in the ascending aorta with a scalpel and punch. The PDA graft was brought along the right side of the heart and anastomosed to the more proximal aortotomy. The circumflex system Y graft was anastomosed to the more distal aortotomy. Both anastomoses were marked with small hemoclips. The partial occluding clamp was removed and the vein grafts were de-aired and the bulldogs were removed from them. The anastomoses were inspected for hemostasis. A posterior pericardial drain was brought out through a separate incision and secured with suture. Right atrial and right ventricular temporary epicardial pacing wires were placed, although initially the left pleura was adherent to the left lung consistent with having maintained an extrapleural exposure. At this point, it was noticed to be bulging and the bulging was more pronounced as ventilation was commenced. No air palumbo was heard upon entering the chest and no fluid was aspirated using the tracheal tube sucker. Hole in the pleura was closed with a pursestring suture under a Valsalva maneuver as the suction tubing was removed from it, resulting in minimal amount of residual air apparent in the pleural space. In the course of weaning from bypass, that pleura was noted to be bulging again raising the specter that the patient truly had an air leak causing pneumothorax, so a chest tube was placed into the left pleural space. The patient was weaned from cardiopulmonary bypass. Aortic and venous cannulae were removed and the pursestring secured. Protamine was administered. When hemostasis was adequate, an anterior mediastinal drain was placed and the pericardium was closed over with running Vicryl. The cut surfaces of the sternum were treated with vancomycin paste and platelet rich GPS. The sternum was reapproximated with #7 stainless steel wires. The soft tissues were irrigated and treated with platelet poor GPS. The fascia closed over the wires with #1 Vicryl. The subcutaneous tissue was reapproximated with 2-0 Vicryl. The skin was closed with Vicryl subcuticular suture and Dermabond. The wounds were dressed and the patient was awakened and extubated in the operating room and taken to the intensive care unit in stable condition. Job ID: [id number]
[2019-02-27] MEDS: Atorvastatin Calcium 40 MG TAB PO SCH (20:13)
[2019-02-27] MEDS: Docusate 100 MG CAP PO SCH (20:14)
[2019-02-27] MEDS ORDERED: Famotidine/PF 20 mg/2ml Vial SLOW IVP SCH (21:00)
[2019-02-27 21:56] LABS: Hemoglobin 11.7 g/dL (14.0-18.0)
[2019-02-27 22:12] LABS: Potassium 4.2 mmol/L (3.5-5.1)
[2019-02-27] MEDS: HYDROcodone/Acetaminophen 5/325 mg Tablet PO PRN (22:39)
[2019-02-28] MEDS: Fentanyl 100 MCG/2 ML VIAL SLOW IVP PRN (03:11)
[2019-02-28 03:45] LABS: #Lymphocytes 0.9 thou/uL (1.20-3.40); #Monocytes 1.8 thou/uL (0.11-0.59); #Neutrophils 10.8 thou/uL (1.40-6.50); %Basophils 0.1 % (0.0-1.0); %Eosinophils 0.1 % (0.0-10.0); %Lymphocytes 6.7 % (21.0-51.0); %Monocytes 13.1 % (0.0-10.0); Hemoglobin 11.6 g/dL (14.0-18.0); Mean Corpuscular HGB CONC 34.4 g/dL (32.0-36.0); Mean Corpuscular Hemoglobin 32.1 pg (27.0-31.0); Mean Corpuscular Volume 93.1 fL (78.0-98.0); Mean Platelet Volume 8.3 fL (7.4-10.4); Platelet Count 192 thou/uL (130-400); RBC Distribution Width 12.6 % (11.5-14.5); Red Blood Cell (RBC) Count 3.63 mill/uL (4.70-6.10); White Blood Cell (WBC) Count 13.5 thou/uL (4.8-10.8)
[2019-02-28 03:55] LABS: Anion Gap 12 mmol/L (10-20); BUN (Urea Nitrogen) 14 mg/dL (8.4-25.7); Calc. Creatinine Clearance 65 mL/min (70-130); Calcium 8.1 mg/dL (7.8-10.44); Carbon Dioxide 20 mmol/L (23-31); Chloride 113 mmol/L (98-107); Estimated GFR-MDRD 71; Glucose 130 mg/dL (83-110); Potassium 4.1 mmol/L (3.5-5.1); Sodium 141 mmol/L (136-145)
[2019-02-28] MEDS ORDERED: Mag-Al 1200 mg/1200 mg/30 ML UDCUP PO PRN (07:24)
[2019-02-28] MEDS ORDERED: Guaifenesin DM 100-10/5 ML UDCUP PO PRN (07:24)
[2019-02-28] MEDS ORDERED: Mineral Oil ENEMA PR PRN (07:24)
[2019-02-28] MEDS ORDERED: Furosemide 40 MG/4 ML VIAL SLOW IVP SCH (07:24)
[2019-02-28] MEDS ORDERED: diphenhydrAMINE 25 MG CAP PO PRN (07:24)
[2019-02-28] MEDS ORDERED: Bisacodyl 5 MG TAB PO PRN (07:24)
[2019-02-28] MEDS ORDERED: Metolazone 5 MG TAB PO SCH (07:24)
[2019-02-28] MEDS ORDERED: Zolpidem Tartrate 5 MG TAB PO PRN (07:24)
[2019-02-28] MEDS ORDERED: Bisacodyl 10 MG SUPP PR PRN (07:24)
[2019-02-28] MEDS ORDERED: Artificial Tears 18 DROP/0.9 ML EA EYE PRN (07:24)
[2019-02-28] MEDS ORDERED: Nitroglycerin 0.4 MG TAB (25 Tab Bottle) SL PRN (07:24)
[2019-02-28] MEDS: Ketorolac Tromethamine 30 MG/ML VIAL IVP SCH ×3 (07:34→20:23)
[2019-02-28] MEDS: HYDROcodone/Acetaminophen 5/325 mg Tablet PO PRN ×2 (07:38→23:16)
[2019-02-28] MEDS: Aspirin 325 mg Enteric Coated Tablet PO SCH (07:38)
[2019-02-28] MEDS: Docusate 100 MG CAP PO SCH ×2 (07:38→20:23)
[2019-02-28] MEDS: Ondansetron PF 4 MG/2 ML Vial IVP PRN (07:39)
[2019-02-28] MEDS ORDERED: Aspirin 325 MG TAB PO SCH (09:00)
[2019-02-28] MEDS: Sodium Chloride 0.9% 1,000 ML IV SCH (09:10)
--- NOTE | 2019-02-28 10:05 | RAD ---
CHEST ONE VIEW: INDICATIONS: History of status post open heart surgery. COMPARISON: Prior exam dated 02/27/2019. FINDINGS: Left-sided thoracostomy tube, midline mediastinal drain and right subclavian central venous catheter are stable. There is worsening air space opacity in the left lower lobe which may reflect worsening a telectasis or pneumonia. Right lung is clear. No pneumothorax is evident. Midline sternotomy changes are similar appearing. IMPRESSION: 1. Worsening opacity left lower lobe may reflect worsening atelectasis. Repeat chest radiograph with improved inspiration may be helpful to exclude the presence of pneumonia. 2. Tubes and lines are stable. 3. No pneumothorax. POS: OFF
--- NOTE | 2019-02-28 13:03 | PDOC.HOSPP ---
- Subjective Encounter Date: 02/28/19 Encounter Time: 08:15 Subjective: Patient seen and examined. No new complaints. No overnight events pt is transferred to tele - Objective Vital Signs & Weight: Vital Signs (12 hours) Temp Pulse Resp BP BP Pulse Ox 02/28/19 11:29 98.0 F 78 20 100/56 L 97 02/28/19 09:40 96 02/28/19 08:59 98.0 F 86 22 H 113/53 L 96 02/28/19 07:00 97.6 F 02/28/19 03:00 98.2 F Weight Admit Weight 179 lb 10.828 oz Weight 176 lb 9.444 oz Most Recent Monitor Data Heart Rate from ECG 77 NIBP 125/58 NIBP BP-Mean 80 Respiration from ECG 21 SpO2 99 I&O: 02/27/19 02/28/19 03/01/19 06:59 06:59 06:59 Intake Total 1644.5 415.3 Output Total 1192 185 Balance 452.5 230.3 Result Diagrams: 02/28/19 03:17 02/28/19 03:30 Additional Labs: Accuchecks 02/28/19 02/28/19 02/27/19 05:49 01:51 23:51 POC Glucose 124 H 121 H 124 H 02/27/19 02/27/19 02/27/19 21:47 21:09 20:21 POC Glucose 132 H 130 H 125 H 02/27/19 02/27/19 02/27/19 19:28 18:32 17:29 POC Glucose 133 H 135 H 139 H 02/27/19 02/27/19 02/27/19 16:27 15:26 14:53 POC Glucose 157 H 149 H 160 H 02/27/19 02/27/19 13:58 13:35 POC Glucose 191 H 200 H EKG Reviewed by me: Yes Hospitalist ROS - Review of Systems Eyes: denies: pain, vision change, conjunctivae inflammation, eyelid inflammation, redness, other ENT: denies: ear pain, ear discharge, nose pain, nose discharge, nose congestion , mouth pain, mouth swelling, throat pain, throat swelling, other Respiratory: denies: cough, dry, shortness of breath, hemoptysis, SOB with excertion, pleuritic pain, sputum, wheezing, other Cardiovascular: denies: chest pain, palpitations, orthopnea, paroxysmal noc. dyspnea, edema, light headedness, other Gastrointestinal: denies: nausea, vomiting, abdominal pain, diarrhea, constipation, melena, hematochezia, other Genitourinary: denies: dysuria, frequency, incontinence, hematuria, retention, other Musculoskeletal: denies: neck pain, shoulder pain, arm pain, back pain, hand pain, leg pain, foot pain, other - Medication Medications: Active Medications Generic Name Dose Route Start Last Admin Trade Name Freq PRN Reason Stop Dose Admin Hydrocodone Bitart/Acetaminophen 2 tab 02/27/19 16:51 02/28/19 07:38 [place] 5/325 PO 2 tab Q4H PRN Administration Severe Pain (7-10) Aspirin 325 mg 02/28/19 09:00 02/28/19 07:38 Ecotrin PO 325 mg DAILY MAIRA TERESA Administration Atorvastatin Calcium 40 mg 02/27/19 21:00 02/27/19 20:13 Lipitor PO 40 mg HS MARIA TERESA Administration Docusate Sodium 100 mg 02/27/19 21:00 02/28/19 07:38 Colace PO 100 mg BID MARIA TERESA Administration Ketorolac Tromethamine 15 mg 02/28/19 08:00 02/28/19 07:34 Toradol IVP 03/01/19 02:01 15 mg 0200,0800,1400,2000 MARIA TERESA Administration Ondansetron HCl 4 mg 02/27/19 16:51 02/28/19 07:39 Zofran IVP 4 mg Q6H PRN Administration Nausea/Vomiting Sodium Chloride 10 ml 02/27/19 21:00 02/28/19 07:39 Flush - Normal Saline IVF 10 ml Q12HR MARIA TERESA Administration - Exam General Appearance: NAD, awake alert Eye: PERRL, anicteric sclera ENT: normocephalic atraumatic, no oropharyngeal lesions Neck: supple, symmetric, no JVD, no thyromegaly Neck - other findings: central line+ Heart: RRR, no murmur, no gallops, no rubs, normal peripheral pulses Respiratory: CTAB, no wheezes, no rales, no ronchi Gastrointestinal: soft, non-tender, non-distended, normal bowel sounds Extremities: no cyanosis, no clubbing, no edema Skin: normal turgor, no lesions Neurological: cranial nerve grossly intact, normal sensation to touch, no focal deficits Musculoskeletal: normal tone, normal strength Psychiatric: normal affect, normal behavior Hosp A/P (1) Myocardial infarction Code(s): I21.9 - ACUTE MYOCARDIAL INFARCTION, UNSPECIFIED Status: Acute Qualifiers: Myocardial infarction type: non-ST elevation myocardial infarction Qualified Code(s): I21.4 - Non-ST elevation (NSTEMI) myocardial infarction (2) CAD (coronary artery disease) Code(s): I25.10 - ATHSCL HEART DISEASE OF [place] CORONARY ARTERY W/O ANG PCTRS Status: Acute Qualifiers: Coronary Disease-Associated Artery/Lesion type: [place] artery (3) Cardiomyopathy Code(s): I42.9 - CARDIOMYOPATHY, UNSPECIFIED Status: Acute Qualifiers: Cardiomyopathy type: unspecified Qualified Code(s): I42.9 - Cardiomyopathy , unspecified (4) Diastolic dysfunction Code(s): I51.89 - OTHER ILL-DEFINED HEART DISEASES Status: Acute (5) GERD (gastroesophageal reflux disease) Code(s): K21.9 - GASTRO-ESOPHAGEAL REFLUX DISEASE WITHOUT ESOPHAGITIS Status: Chronic (6) HLD (hyperlipidemia) Code(s): E78.5 - HYPERLIPIDEMIA, UNSPECIFIED Status: Chronic (7) Left lower lobe pulmonary infiltrate Code(s): R91.8 - OTHER NONSPECIFIC ABNORMAL FINDING OF LUNG FIELD Status: Acute - Plan old records reviewed/req 02/28/19 continue post CABG treatment continue lasix monitor chest xray does not suspect pneumonia, likely related with atelectesis vs effusion
[2019-02-28] MEDS: Atorvastatin Calcium 40 MG TAB PO SCH (20:23)
[2019-03-01] MEDS: Ketorolac Tromethamine 30 MG/ML VIAL IVP SCH (02:43)
[2019-03-01 04:41] LABS: #Basophils 0.1 thou/uL (0.0-0.2); #Eosinphils 0.2 thou/uL (0.0-0.7); #Monocytes 1.8 thou/uL (0.11-0.59); #Neutrophils 9.1 thou/uL (1.40-6.50); %Basophils 0.5 % (0.0-1.0); %Eosinophils 1.4 % (0.0-10.0); %Monocytes 13.7 % (0.0-10.0); %Neutrophils 69.3 % (42.0-75.0); Hemoglobin 10.5 g/dL (14.0-18.0); Mean Corpuscular HGB CONC 34.3 g/dL (32.0-36.0); Mean Corpuscular Hemoglobin 32.1 pg (27.0-31.0); Mean Corpuscular Volume 93.6 fL (78.0-98.0); Mean Platelet Volume 8.6 fL (7.4-10.4); Platelet Count 176 thou/uL (130-400); RBC Distribution Width 12.7 % (11.5-14.5); Red Blood Cell (RBC) Count 3.26 mill/uL (4.70-6.10); White Blood Cell (WBC) Count 13.1 thou/uL (4.8-10.8)
[2019-03-01 04:57] LABS: Anion Gap 11 mmol/L (10-20); BUN (Urea Nitrogen) 20 mg/dL (8.4-25.7); Calc. Creatinine Clearance 57 mL/min (70-130); Calcium 8.3 mg/dL (7.8-10.44); Carbon Dioxide 23 mmol/L (23-31); Chloride 105 mmol/L (98-107); Estimated GFR-MDRD 55; Glucose 116 mg/dL (83-110); Potassium 3.7 mmol/L (3.5-5.1); Sodium 135 mmol/L (136-145)
[2019-03-01] MEDS: Docusate 100 MG CAP PO SCH ×2 (08:53→20:33)
[2019-03-01] MEDS: Aspirin 325 mg Enteric Coated Tablet PO SCH (08:53)
--- NOTE | 2019-03-01 09:50 | RAD ---
CHEST 1 VIEW: Date: 03/01/19 HISTORY: Status post open heart surgery. COMPARISON: 02/28/19. FINDINGS: Redemonstration of sternotomy wires, mediastinal drainage catheters, left-sided chest tube, and right -sided vascular catheter. Stable configuration of cardiac silhouette. Stable opacities in the lung bases. Small bilateral effus ions are noted. No pneumothorax. IMPRESSION: Findings compatible with recent open heart surgery. No significant change. POS: LEONARDO
--- NOTE | 2019-03-01 10:13 | PDOC.HOSPP ---
- Subjective Encounter Date: 03/01/19 Encounter Time: 07:50 Subjective: Patient seen and examined. No new complaints. No overnight events he is seated in chair, overall doing well, bedside, still has chest tube in place - Objective Vital Signs & Weight: Vital Signs (12 hours) Temp Pulse Resp BP BP Pulse Ox 03/01/19 07:50 96.9 F L 83 17 115/65 94 L 03/01/19 07:24 93 L 03/01/19 03:35 97.6 F 79 20 97/48 L 97 02/28/19 23:40 97.9 F 89 22 H 112/47 L 96 Weight Admit Weight 179 lb 10.828 oz Weight 173 lb 3.2 oz Most Recent Monitor Data Heart Rate from ECG 77 NIBP 125/58 NIBP BP-Mean 80 Respiration from ECG 21 SpO2 99 I&O: 02/28/19 03/01/19 03/02/19 06:59 06:59 06:59 Intake Total 1644.5 1255.3 Output Total 1192 1770 Balance 452.5 -514.7 Result Diagrams: 03/01/19 04:15 03/01/19 04:15 Radiology Reviewed by me: Yes (chest xray reviewed) EKG Reviewed by me: Yes (nsr) Hospitalist ROS - Review of Systems Constitutional: denies: fever, chills, sweats, weakness, malaise, other Eyes: denies: pain, vision change, conjunctivae inflammation, eyelid inflammation, redness, other ENT: denies: ear pain, ear discharge, nose pain, nose discharge, nose congestion , mouth pain, mouth swelling, throat pain, throat swelling, other Respiratory: denies: cough, dry, shortness of breath, hemoptysis, SOB with excertion, pleuritic pain, sputum, wheezing, other Cardiovascular: denies: chest pain, palpitations, orthopnea, paroxysmal noc. dyspnea, edema, light headedness, other Gastrointestinal: denies: nausea, vomiting, abdominal pain, diarrhea, constipation, melena, hematochezia, other Genitourinary: denies: dysuria, frequency, incontinence, hematuria, retention, other Musculoskeletal: denies: neck pain, shoulder pain, arm pain, back pain, hand pain, leg pain, foot pain, other Skin: denies: rash, lesions, veronica, bruising, other - Medication Medications: Active Medications Generic Name Dose Route Start Last Admin Trade Name Freq PRN Reason Stop Dose Admin Hydrocodone Bitart/Acetaminophen 2 tab 02/27/19 16:51 02/28/19 23:16 [place] 5/325 PO 2 tab Q4H PRN Administration Severe Pain (7-10) Aspirin 325 mg 02/28/19 09:00 03/01/19 08:53 Ecotrin PO 325 mg DAILY MARIA TERESA Administration Atorvastatin Calcium 40 mg 02/27/19 21:00 02/28/19 20:23 Lipitor PO 40 mg HS MARIA TERESA Administration Docusate Sodium 100 mg 02/27/19 21:00 03/01/19 08:53 Colace PO 100 mg BID MARIA TERESA Administration Ondansetron HCl 4 mg 02/27/19 16:51 02/28/19 07:39 Zofran IVP 4 mg Q6H PRN Administration Nausea/Vomiting Sodium Chloride 10 ml 02/27/19 21:00 03/01/19 08:53 Flush - Normal Saline IVF 10 ml Q12HR MARIA TERESA Administration - Exam General Appearance: NAD, awake alert Eye: PERRL, anicteric sclera ENT: normocephalic atraumatic, no oropharyngeal lesions Neck: supple, symmetric, no JVD, no thyromegaly Heart: RRR, no murmur, no gallops, no rubs, normal peripheral pulses Respiratory: CTAB, no wheezes, no rales, no ronchi, normal chest expansion Respiratory - other findings: chest tube in place Gastrointestinal: soft, non-tender, non-distended, normal bowel sounds, no palpable masses, no hepatomegaly Extremities: no cyanosis, no clubbing, no edema Skin: normal turgor, no lesions Neurological: cranial nerve grossly intact, no focal deficits Musculoskeletal: normal tone, normal strength Psychiatric: normal affect, normal behavior Hosp A/P (1) Myocardial infarction Code(s): I21.9 - ACUTE MYOCARDIAL INFARCTION, UNSPECIFIED Status: Acute Qualifiers: Myocardial infarction type: non-ST elevation myocardial infarction Qualified Code(s): I21.4 - Non-ST elevation (NSTEMI) myocardial infarction (2) CAD (coronary artery disease) Code(s): I25.10 - ATHSCL HEART DISEASE OF [place] CORONARY ARTERY W/O ANG PCTRS Status: Acute Qualifiers: Coronary Disease-Associated Artery/Lesion type: [place] artery (3) Cardiomyopathy Code(s): I42.9 - CARDIOMYOPATHY, UNSPECIFIED Status: Acute Qualifiers: Cardiomyopathy type: unspecified Qualified Code(s): I42.9 - Cardiomyopathy , unspecified (4) Diastolic dysfunction Code(s): I51.89 - OTHER ILL-DEFINED HEART DISEASES Status: Acute (5) GERD (gastroesophageal reflux disease) Code(s): K21.9 - GASTRO-ESOPHAGEAL REFLUX DISEASE WITHOUT ESOPHAGITIS Status: Chronic (6) HLD (hyperlipidemia) Code(s): E78.5 - HYPERLIPIDEMIA, UNSPECIFIED Status: Chronic (7) Left lower lobe pulmonary infiltrate Code(s): R91.8 - OTHER NONSPECIFIC ABNORMAL FINDING OF LUNG FIELD Status: Acute (8) S/P CABG x 4 Status: Acute (9) Anemia due to acute blood loss Code(s): D62 - ACUTE POSTHEMORRHAGIC ANEMIA Status: Acute - Plan old records reviewed/req, plan discussed w/ family 02/28/19 continue post CABG treatment continue lasix monitor chest xray does not suspect pneumonia, likely related with atelectesis vs effusion 03/01/19 chest tube as per CV surgery continue cardiac rehab chest xray has improvement medication reviewed as above symptomatic treatment discussed with
[2019-03-01] MEDS: HYDROcodone/Acetaminophen 5/325 mg Tablet PO PRN (11:31)
[2019-03-01] MEDS ORDERED: Metolazone 5 MG TAB PO SCH (14:45)
[2019-03-01] MEDS ORDERED: Furosemide 40 MG/4 ML VIAL SLOW IVP SCH (14:45)
[2019-03-01] MEDS: Metoprolol Tartrate 25 MG TAB PO SCH (20:33)
[2019-03-01] MEDS: Atorvastatin Calcium 40 MG TAB PO SCH (20:33)
[2019-03-01] MEDS ORDERED: Amiodarone 450 MG, Admixture Fee 1 EACH in Dextrose 5% in Water 250 ML IVPB SCH (20:45)
[2019-03-01 21:27] LABS: ALT (SGPT) 50 U/L (8-55); AST (SGOT) 60 U/L (5-34); Albumin 3.9 g/dL (3.4-4.8); Alkaline Phosphatase 52 U/L (40-110); Bilirubin, Direct 0.3 mg/dL (0.1-0.3); Bilirubin, Total 0.5 mg/dL (0.2-1.2); Magnesium 2.1 mg/dL (1.6-2.6); Protein, Total 6.6 g/dL (5.8-8.1)
[2019-03-02] MEDS ORDERED: Digoxin 0.5 MG/2 ML AMP SLOW IVP SCH (00:30)
[2019-03-02] MEDS ORDERED: Amiodarone 200 MG TAB PO SCH (00:45)
[2019-03-02] MEDS ORDERED: Furosemide 40 MG/4 ML VIAL SLOW IVP SCH (01:00)
[2019-03-02 05:19] LABS: #Basophils 0.1 thou/uL (0.0-0.2); #Eosinphils 0.4 thou/uL (0.0-0.7); #Lymphocytes 1.6 thou/uL (1.20-3.40); #Monocytes 1.8 thou/uL (0.11-0.59); #Neutrophils 10.6 thou/uL (1.40-6.50); %Basophils 0.4 % (0.0-1.0); %Eosinophils 2.8 % (0.0-10.0); %Lymphocytes 11.3 % (21.0-51.0); %Monocytes 12.5 % (0.0-10.0); Hemoglobin 11.5 g/dL (14.0-18.0); Mean Corpuscular HGB CONC 34.3 g/dL (32.0-36.0); Mean Corpuscular Volume 93.2 fL (78.0-98.0); Mean Platelet Volume 8.7 fL (7.4-10.4); Platelet Count 214 thou/uL (130-400); RBC Distribution Width 12.5 % (11.5-14.5); White Blood Cell (WBC) Count 14.6 thou/uL (4.8-10.8)
[2019-03-02 05:35] LABS: Anion Gap 14 mmol/L (10-20); BUN (Urea Nitrogen) 15 mg/dL (8.4-25.7); Calc. Creatinine Clearance 64 mL/min (70-130); Carbon Dioxide 26 mmol/L (23-31); Chloride 94 mmol/L (98-107); Estimated GFR-MDRD 65; Glucose 109 mg/dL (83-110); Potassium 3.5 mmol/L (3.5-5.1); Sodium 130 mmol/L (136-145)
--- NOTE | 2019-03-02 07:47 | RAD ---
PORTABLE FRONTAL CHEST RADIOGRAPH: 03/02/2019 HISTORY: Evaluate chest following CABG. COMPARISON: 03/01/2019 FINDINGS: Stable midline sternotomy wires and right vascular catheter. Patchy nonspecific pleural and parenchym al opacity again noted in the left lung base. Drainage catheter overlying the left lung base on the prior examination has been removed. Mild nonspecific linear density persists within the right lung ba se as well. IMPRESSION: Bibasilar parenchymal opacity, left greater than right, with probable small volume left pleural fluid . Postoperative changes as detailed above. Transcribed Date/Time: 03/02/2019 9:33 AM
[2019-03-02] MEDS: Potassium Chloride 20 MEQ TAB PO SCH ×2 (09:25→17:21)
[2019-03-02] MEDS: Aspirin 325 mg Enteric Coated Tablet PO SCH (09:25)
[2019-03-02] MEDS: Docusate 100 MG CAP PO SCH ×2 (09:26→20:22)
[2019-03-02] MEDS: Metoprolol Tartrate 25 MG TAB PO SCH ×2 (09:26→20:22)
[2019-03-02] MEDS: Amiodarone 200 MG TAB PO SCH ×2 (09:26→20:22)
--- NOTE | 2019-03-02 10:10 | EKG ---
Test Reason : POSTOP Blood Pressure : / mmHG Vent. Rate : 116 BPM Atrial Rate : 116 BPM P-R Int : 232 ms QRS Dur : 086 ms QT Int : 390 ms P-R-T Axes : 018 042 114 degrees QTc Int : 542 ms Atrial-paced rhythm with prolonged AV conduction with frequent ventricular-paced complexes and with f requent supraventricular complexes ST elevation consider inferior injury or acute infarct Prolonged QT ACUTE ME / STEMI Consider right ventricular involvement in acute inferior infarct Abnormal ECG Confirmed by TALAT SANTOS MD ([id number]) on 03/02/2019 10:10:15 AM Referred By: LE Confirmed By:TALAT SANTOS MD
--- NOTE | 2019-03-02 11:22 | PDOC.HOSPP ---
- Subjective Encounter Date: 03/02/19 Encounter Time: 08:00 Subjective: Patient seen and examined. No new complaints. No overnight events pt had PAF yesterday and converted to NSR - Objective Vital Signs & Weight: Vital Signs (12 hours) Temp Pulse Resp BP BP BP Pulse Ox 03/02/19 08:00 90 17 111/51 L 92 L 03/02/19 03:15 97.3 F L 114 H 20 102/57 L 96 03/02/19 00:38 135 H 03/02/19 00:00 120 H 107/53 L Weight Admit Weight 179 lb 10.828 oz Weight 165 lb 8 oz Most Recent Monitor Data Heart Rate from ECG 77 NIBP 125/58 NIBP BP-Mean 80 Respiration from ECG 21 SpO2 99 I&O: 03/01/19 03/02/19 03/03/19 06:59 06:59 06:59 Intake Total 1255.3 2340 Output Total 1770 5200 Balance -514.7 -2860 Result Diagrams: 03/02/19 04:37 03/02/19 04:37 EKG Reviewed by me: Yes (nsr) Hospitalist ROS - Review of Systems Eyes: denies: pain, vision change, conjunctivae inflammation, eyelid inflammation, redness, other ENT: denies: ear pain, ear discharge, nose pain, nose discharge, nose congestion , mouth pain, mouth swelling, throat pain, throat swelling, other Respiratory: denies: cough, dry, shortness of breath, hemoptysis, SOB with excertion, pleuritic pain, sputum, wheezing, other Cardiovascular: denies: chest pain, palpitations, orthopnea, paroxysmal noc. dyspnea, edema, light headedness, other Gastrointestinal: denies: nausea, vomiting, abdominal pain, diarrhea, constipation, melena, hematochezia, other Genitourinary: denies: dysuria, frequency, incontinence, hematuria, retention, other Musculoskeletal: denies: neck pain, shoulder pain, arm pain, back pain, hand pain, leg pain, foot pain, other Skin: denies: rash, lesions, veronica, bruising, other - Medication Medications: Active Medications Generic Name Dose Route Start Last Admin Trade Name Freq PRN Reason Stop Dose Admin Hydrocodone Bitart/Acetaminophen 2 tab 02/27/19 16:51 03/01/19 11:31 [place] 5/325 PO 2 tab Q4H PRN Administration Severe Pain (7-10) Amiodarone HCl 400 mg 03/02/19 09:00 03/02/19 09:26 Cordarone PO 400 mg BID MARIA TERESA Administration Aspirin 325 mg 02/28/19 09:00 03/02/19 09:25 Ecotrin PO 325 mg DAILY MARIA TERESA Administration Atorvastatin Calcium 40 mg 02/27/19 21:00 03/01/19 20:33 Lipitor PO 40 mg HS MARIA TERESA Administration Docusate Sodium 100 mg 02/27/19 21:00 03/02/19 09:26 Colace PO 100 mg BID MARIA TERESA Administration Metoprolol Tartrate 25 mg 03/01/19 21:00 03/02/19 09:26 Lopressor PO 25 mg BID MARIA TERESA Administration Ondansetron HCl 4 mg 02/27/19 16:51 02/28/19 07:39 Zofran IVP 4 mg Q6H PRN Administration Nausea/Vomiting Potassium Chloride 40 meq 03/02/19 08:00 03/02/19 09:25 K-Dur PO 03/02/19 17:01 40 meq BID-WM MARIA TERESA Administration Sodium Chloride 10 ml 02/27/19 21:00 03/02/19 09:25 Flush - Normal Saline IVF 10 ml Q12HR MARIA TERESA Administration - Exam General Appearance: NAD, awake alert Eye: PERRL, anicteric sclera ENT: normocephalic atraumatic, no oropharyngeal lesions Neck: supple, symmetric, no JVD, no thyromegaly Heart: RRR, no murmur, no gallops, no rubs, normal peripheral pulses Heart - other findings: surgical site clean Respiratory: CTAB, no wheezes, no rales, no ronchi Gastrointestinal: soft, non-tender, non-distended, normal bowel sounds, no palpable masses, no guarding Extremities: no cyanosis, no clubbing, no edema Skin: normal turgor, no lesions, no rashes Neurological: cranial nerve grossly intact, no focal deficits Musculoskeletal: normal tone, normal strength Psychiatric: normal affect, normal behavior Hosp A/P (1) Myocardial infarction Code(s): I21.9 - ACUTE MYOCARDIAL INFARCTION, UNSPECIFIED Status: Acute Qualifiers: Myocardial infarction type: non-ST elevation myocardial infarction Qualified Code(s): I21.4 - Non-ST elevation (NSTEMI) myocardial infarction (2) CAD (coronary artery disease) Code(s): I25.10 - ATHSCL HEART DISEASE OF [place] CORONARY ARTERY W/O ANG PCTRS Status: Acute Qualifiers: Coronary Disease-Associated Artery/Lesion type: [place] artery (3) Cardiomyopathy Code(s): I42.9 - CARDIOMYOPATHY, UNSPECIFIED Status: Acute Qualifiers: Cardiomyopathy type: unspecified Qualified Code(s): I42.9 - Cardiomyopathy , unspecified (4) Diastolic dysfunction Code(s): I51.89 - OTHER ILL-DEFINED HEART DISEASES Status: Acute (5) GERD (gastroesophageal reflux disease) Code(s): K21.9 - GASTRO-ESOPHAGEAL REFLUX DISEASE WITHOUT ESOPHAGITIS Status: Chronic (6) HLD (hyperlipidemia) Code(s): E78.5 - HYPERLIPIDEMIA, UNSPECIFIED Status: Chronic (7) Left lower lobe pulmonary infiltrate Code(s): R91.8 - OTHER NONSPECIFIC ABNORMAL FINDING OF LUNG FIELD Status: Acute (8) S/P CABG x 4 Status: Acute (9) Anemia due to acute blood loss Code(s): D62 - ACUTE POSTHEMORRHAGIC ANEMIA Status: Acute (10) Atrial fibrillation Code(s): I48.91 - UNSPECIFIED ATRIAL FIBRILLATION Status: Acute (11) Hyponatremia Code(s): E87.1 - HYPO-OSMOLALITY AND HYPONATREMIA Status: Acute - Plan old records reviewed/req, plan discussed w/ family, PT/OT 02/28/19 continue post CABG treatment continue lasix monitor chest xray does not suspect pneumonia, likely related with atelectesis vs effusion 03/01/19 chest tube as per CV surgery continue cardiac rehab chest xray has improvement medication reviewed as above symptomatic treatment discussed with 03/02/19 continue post op treatment on amiodaron and NSR now medication reviewed as above symptomatic treatment will DC when CV surgery OK wean off oxygen as tolerated cardiac rehab
[2019-03-02] MEDS: Atorvastatin Calcium 40 MG TAB PO SCH (20:22)
[2019-03-03 04:50] LABS: #Eosinphils 0.5 thou/uL (0.0-0.7); #Lymphocytes 1.5 thou/uL (1.20-3.40); #Monocytes 1.8 thou/uL (0.11-0.59); #Neutrophils 9.8 thou/uL (1.40-6.50); %Basophils 0.2 % (0.0-1.0); %Eosinophils 3.8 % (0.0-10.0); %Lymphocytes 11.3 % (21.0-51.0); %Neutrophils 71.7 % (42.0-75.0); Mean Corpuscular HGB CONC 34.5 g/dL (32.0-36.0); Mean Corpuscular Hemoglobin 32.2 pg (27.0-31.0); Mean Corpuscular Volume 93.2 fL (78.0-98.0); Mean Platelet Volume 8.6 fL (7.4-10.4); Platelet Count 236 thou/uL (130-400); RBC Distribution Width 12.5 % (11.5-14.5); Red Blood Cell (RBC) Count 3.41 mill/uL (4.70-6.10); White Blood Cell (WBC) Count 13.6 thou/uL (4.8-10.8)
[2019-03-03 05:17] LABS: Anion Gap 11 mmol/L (10-20); BUN (Urea Nitrogen) 20 mg/dL (8.4-25.7); Calc. Creatinine Clearance 70 mL/min (70-130); Calcium 9.1 mg/dL (7.8-10.44); Carbon Dioxide 27 mmol/L (23-31); Chloride 94 mmol/L (98-107); Estimated GFR-MDRD 75; Glucose 103 mg/dL (83-110); Potassium 3.9 mmol/L (3.5-5.1); Sodium 128 mmol/L (136-145)
[2019-03-03] MEDS: Aspirin 325 mg Enteric Coated Tablet PO SCH (08:44)
[2019-03-03] MEDS: Metoprolol Tartrate 25 MG TAB PO SCH (08:45)
[2019-03-03] MEDS: Amiodarone 200 MG TAB PO SCH (08:45)
[2019-03-03] MEDS: Docusate 100 MG CAP PO SCH (08:45)
--- NOTE | 2019-03-03 09:51 | RAD ---
PORTABLE CHEST 1 VIEW: Date: 03/03/19 Time: 0835 hours HISTORY: Post CABG. FINDINGS/IMPRESSION: Comparison made with exam of previous day. Changes of median sternotomy again seen. Right-sided central line remains in place. The heart size is prominent. Bibasilar opacities are again seen. No pneumothoraces or large effusions are identified. POS: [facility]
--- NOTE | 2019-03-03 09:54 | PDOC.HOSPP ---
- Subjective Encounter Date: 03/03/19 Encounter Time: 07:45 Subjective: Patient seen and examined. No new complaints. No overnight events - Objective Vital Signs & Weight: Vital Signs (12 hours) Temp Pulse Resp BP BP Pulse Ox 03/03/19 07:54 98.0 F 76 17 119/55 L 93 L 03/03/19 04:00 98.4 F 68 20 113/56 L 93 L 03/03/19 01:18 94 L Weight Admit Weight 179 lb 10.828 oz Weight 165 lb 8 oz Most Recent Monitor Data Heart Rate from ECG 77 NIBP 125/58 NIBP BP-Mean 80 Respiration from ECG 21 SpO2 99 I&O: 03/02/19 03/03/19 03/04/19 06:59 06:59 06:59 Intake Total 2340 Output Total 5200 350 Balance -2860 -350 Result Diagrams: 03/03/19 04:15 03/03/19 04:15 EKG Reviewed by me: Yes Hospitalist ROS - Review of Systems Eyes: denies: pain, vision change, conjunctivae inflammation, eyelid inflammation, redness, other ENT: denies: ear pain, ear discharge, nose pain, nose discharge, nose congestion , mouth pain, mouth swelling, throat pain, throat swelling, other Respiratory: denies: cough, dry, shortness of breath, hemoptysis, SOB with excertion, pleuritic pain, sputum, wheezing, other Cardiovascular: denies: chest pain, palpitations, orthopnea, paroxysmal noc. dyspnea, edema, light headedness, other Gastrointestinal: denies: nausea, vomiting, abdominal pain, diarrhea, constipation, melena, hematochezia, other Genitourinary: denies: dysuria, frequency, incontinence, hematuria, retention, other Musculoskeletal: denies: neck pain, shoulder pain, arm pain, back pain, hand pain, leg pain, foot pain, other Skin: denies: rash, lesions, veronica, bruising, other - Medication Medications: Active Medications Generic Name Dose Route Start Last Admin Trade Name Freq PRN Reason Stop Dose Admin Hydrocodone Bitart/Acetaminophen 2 tab 02/27/19 16:51 03/01/19 11:31 [place] 5/325 PO 2 tab Q4H PRN Administration Severe Pain (7-10) Amiodarone HCl 400 mg 03/02/19 09:00 03/03/19 08:45 Cordarone PO 400 mg BID MARIA TERESA Administration Aspirin 325 mg 02/28/19 09:00 03/03/19 08:44 Ecotrin PO 325 mg DAILY MARIA TERESA Administration Atorvastatin Calcium 40 mg 02/27/19 21:00 03/02/19 20:22 Lipitor PO 40 mg HS MARIA TERESA Administration Docusate Sodium 100 mg 02/27/19 21:00 03/03/19 08:45 Colace PO 100 mg BID MARIA TERESA Administration Metoprolol Tartrate 25 mg 03/01/19 21:00 03/03/19 08:45 Lopressor PO 25 mg BID MARIA TERESA Administration Ondansetron HCl 4 mg 02/27/19 16:51 02/28/19 07:39 Zofran IVP 4 mg Q6H PRN Administration Nausea/Vomiting Sodium Chloride 10 ml 02/27/19 21:00 03/03/19 08:45 Flush - Normal Saline IVF 10 ml Q12HR MARIA TERESA Administration - Exam General Appearance: NAD, awake alert Eye: PERRL, anicteric sclera ENT: normocephalic atraumatic, no oropharyngeal lesions Neck: supple, symmetric, no JVD, no thyromegaly Heart: RRR, no murmur, no gallops, no rubs Respiratory: CTAB, no wheezes, no rales, no ronchi Gastrointestinal: soft, non-tender, non-distended, normal bowel sounds Extremities: no cyanosis, no clubbing, no edema Skin: normal turgor, no lesions Neurological: cranial nerve grossly intact, no focal deficits Hosp A/P (1) Myocardial infarction Code(s): I21.9 - ACUTE MYOCARDIAL INFARCTION, UNSPECIFIED Status: Acute Qualifiers: Myocardial infarction type: non-ST elevation myocardial infarction Qualified Code(s): I21.4 - Non-ST elevation (NSTEMI) myocardial infarction (2) CAD (coronary artery disease) Code(s): I25.10 - ATHSCL HEART DISEASE OF [place] CORONARY ARTERY W/O ANG PCTRS Status: Acute Qualifiers: Coronary Disease-Associated Artery/Lesion type: [place] artery (3) Cardiomyopathy Code(s): I42.9 - CARDIOMYOPATHY, UNSPECIFIED Status: Acute Qualifiers: Cardiomyopathy type: unspecified Qualified Code(s): I42.9 - Cardiomyopathy , unspecified (4) Diastolic dysfunction Code(s): I51.89 - OTHER ILL-DEFINED HEART DISEASES Status: Acute (5) GERD (gastroesophageal reflux disease) Code(s): K21.9 - GASTRO-ESOPHAGEAL REFLUX DISEASE WITHOUT ESOPHAGITIS Status: Chronic (6) HLD (hyperlipidemia) Code(s): E78.5 - HYPERLIPIDEMIA, UNSPECIFIED Status: Chronic (7) Left lower lobe pulmonary infiltrate Code(s): R91.8 - OTHER NONSPECIFIC ABNORMAL FINDING OF LUNG FIELD Status: Acute (8) S/P CABG x 4 Status: Acute (9) Anemia due to acute blood loss Code(s): D62 - ACUTE POSTHEMORRHAGIC ANEMIA Status: Acute (10) Atrial fibrillation Code(s): I48.91 - UNSPECIFIED ATRIAL FIBRILLATION Status: Acute (11) Hyponatremia Code(s): E87.1 - HYPO-OSMOLALITY AND HYPONATREMIA Status: Acute - Plan old records reviewed/req 02/28/19 continue post CABG treatment continue lasix monitor chest xray does not suspect pneumonia, likely related with atelectesis vs effusion 03/01/19 chest tube as per CV surgery continue cardiac rehab chest xray has improvement medication reviewed as above symptomatic treatment discussed with 03/02/19 continue post op treatment on amiodaron and NSR now medication reviewed as above symptomatic treatment will DC when CV surgery OK wean off oxygen as tolerated cardiac rehab 03/03/19 stable with current treatment medication reviewed as above symptomatic treatment cardiac rehab PO amiodaron
[2019-03-03 12:11] VITALS: TEMP 97.2
--- NOTE | 2019-03-03 14:38 | PDOC.CPN ---
- Subjective Date: 03/03/19 Time: 14:46 Interval history: The pt seen and examined. No overnight events. No cardiac complaints. - Objective Allergies/Adverse Reactions: Allergies Allergy/AdvReac Type Severity Reaction Status Date / Time No Known Drug Allergies Allergy Verified 02/23/19 07:14 Visit Medications: Current Medications Hydrocodone Bitart/Acetaminophen ([place] 5/325) 1 tab PO Q4H PRN PRN Reason: Moderate Pain (4-6) Hydrocodone Bitart/Acetaminophen ([place] 5/325) 2 tab PO Q4H PRN PRN Reason: Severe Pain (7-10) Last Admin: 03/01/19 11:31 Dose: 2 tab Al Hydroxide/Mg Hydroxide (Maalox) 30 ml PO Q4H PRN PRN Reason: Indigestion Albuterol/Ipratropium (Duoneb) 3 ml NEB Z2HI-PM PRN PRN Reason: SHORTNESS OF BREATH Amiodarone HCl (Cordarone) 400 mg PO BID [facility] Last Admin: 03/03/19 08:45 Dose: 400 mg Artificial Tears (Tears Naturale) 0 drop EA EYE PRN PRN PRN Reason: Dry Eyes Aspirin (Ecotrin) 325 mg PO DAILY [facility] Last Admin: 03/03/19 08:44 Dose: 325 mg Atorvastatin Calcium (Lipitor) 40 mg PO HS [facility] Last Admin: 03/02/19 20:22 Dose: 40 mg Bisacodyl (Dulcolax) 10 mg PO Q12H PRN PRN Reason: Constipation Bisacodyl (Dulcolax) 10 mg VT Q12H PRN PRN Reason: Constipation Diphenhydramine HCl (Benadryl) 25 mg PO Q6H PRN PRN Reason: Itching & Insomnia or Nino Braxton Docusate Sodium (Colace) 100 mg PO BID [facility] Last Admin: 03/03/19 08:45 Dose: 100 mg Guaifenesin/Dextromethorphan (Robitussin Dm) 15 ml PO Q4H PRN PRN Reason: Cough Metoprolol Tartrate (Lopressor) 25 mg PO BID [facility] Last Admin: 03/03/19 08:45 Dose: 25 mg Mineral Oil (Fleet Mineral Oil) 133 ml VT DAILYPRN PRN PRN Reason: Constipation Nitroglycerin (Nitrostat) 0.4 mg SL Q5MIN PRN PRN Reason: Chest Pain Ondansetron HCl (Zofran) 4 mg IVP Q6H PRN PRN Reason: Nausea/Vomiting Last Admin: 02/28/19 07:39 Dose: 4 mg Sodium Chloride (Flush - Normal Saline) 10 ml IVF Q12HR MARIA TERESA Last Admin: 03/03/19 08:45 Dose: 10 ml Zolpidem Tartrate (Ambien) 5 mg PO HSPRN PRN PRN Reason: Insomnia Vital Signs & Weight: Vital Signs Temp Pulse Pulse Pulse Resp BP BP 03/03/19 12:09 76 72 129/60 117/60 03/03/19 12:00 97.2 F L 67 18 03/03/19 07:54 98.0 F 76 17 03/03/19 04:00 98.4 F 68 20 BP BP Pulse Ox Pulse Ox 03/03/19 12:09 91 L 03/03/19 12:00 120/48 L 93 L 03/03/19 07:54 119/55 L 93 L 03/03/19 04:00 113/56 L 93 L Admit Weight 179 lb 10.828 oz Weight 165 lb 8 oz - Physical Exam General: alert & oriented x3 HEENT: mucus membranes moist Cardiac: regular rate and rhythm, S1/S2 Lungs: clear to auscultation Neuro: cranial nerve 2-12 intact Skin: clear Musculoskeletal: normal range of motion - Labs Result Diagrams: 03/03/19 04:15 03/03/19 04:15 Troponin/CKMB CK-MB (CK-2) 3.1 ng/mL (0-6.6) 02/23/19 01:41 Troponin I 0.264 ng/mL (< 0.028) H 02/23/19 07:25 - Telemetry Sinus rhythms and dysrhythmias: sinus rhythm - Assessment/Plan Assessment/Plan: 1. CAD with CABG x 4 on 02/27/2019 - stable with bblocker, ASA, Statin 2. Post-of Afib - remains in SR with Amiodarone; On ASA for now 3. HTN - stable 4. HLD - on Statin 5. Hyponatremia - MAR Reviewed * The pt will F/u with Dr Allen's within 2-4 wks.
[2019-03-03 14:47] VITALS: BP 125/52
--- NOTE | 2019-03-03 23:28 | DIS ---
DATE OF ADMISSION: 02/23/2019 DATE OF DISCHARGE: 03/03/2019 PRINCIPAL DIAGNOSIS: Left main coronary artery disease with post infarction angina. SECONDARY DIAGNOSES: Atrial fibrillation and bilateral carotid stenosis. PROCEDURES PERFORMED: Cardiac catheterization 02/26/2019. Coronary artery bypass grafting x4 with left internal mammary artery to the LAD, reverse greater saphenous vein graft from the aorta to the first obtuse marginal into the PDA and from the OM 1 graft to the OM 2, 02/27/2019. HISTORY OF PRESENT ILLNESS AND HOSPITAL COURSE: The patient is a 73-year-old man with a distant history of smoking and minimal past medical history. In retrospect, he had had several months of decrease in exercise tolerance and some dyspnea on exertion. The week prior to presentation, he had had some chest pain and shortness of breath associated with heavy physical exertion. The day of presentation, he had an episode while watching television, although his pain fairly quickly resolved after seeking medical attention. His troponin was elevated and he had a few episodes of chest pain at rest while in the hospital. His cardiac catheterization demonstrated 50% to 60% left main lesion as well as a very high-grade lesion in his mid LAD and low normal left ventricular function. Bilateral asymptomatic carotid bruits prompted ultrasonography which demonstrated plaque in both bulbs, worse on the right than on the left with velocities and ratios consistent with 50% to 69% stenoses bilaterally. He underwent surgical revascularization. His LAD was a reasonably good vessel, his first OM was a large but poor quality vessel and the OM2 was very small. The PDA was a reasonable size vessel. He did well postoperatively. He initially was slightly bradycardic with improved blood pressure and perfusion with pacing. He tolerated withdrawal of the pacemaker. The following day, he was started on diuresis and responded quite briskly. Beta blockers were held initially, but early on the morning of postoperative day 3, he had an episode of rapid atrial fibrillation and his blood pressure dropped when starting IV amiodarone. He was switched to oral amiodarone and given IV digoxin, Lopressor was started orally and he maintained good blood pressures with that, within a few hours converted back into a sinus rhythm. He has had no recurrence of atrial fibrillation on 400 mg of amiodarone b.i.d. and Lopressor 25 mg b.i.d. His heart rate is in the 70s and blood pressures ranged from about 100 to 120/50 to 60. He will be discharged home now on an amiodarone taper and Lopressor 25 mg b.i.d. and aspirin and Lipitor 40 mg a day. Job ID: [id number]
--- NOTE | 2019-03-04 10:11 | DIS ---
DATE OF ADMISSION: 02/23/2019 DATE OF DISCHARGE: 03/03/2019 DISCHARGE DISPOSITION: Home. PRIMARY DISCHARGE DIAGNOSES: Status post CABG x4, non-ST elevation PR, anemia due to acute blood loss, postoperative atrial fibrillation. SECONDARY DISCHARGE DIAGNOSES: Hypertension, dyslipidemia, gastroesophageal reflux disease, coronary artery disease. PRIMARY PROCEDURE/OPERATION: CABG x4 and cardiac catheterization. RADIOLOGICAL INVESTIGATION: 1. Echocardiography, showed EF 45% to 50%, diastolic dysfunction. 2. Chest x-ray. SIGNIFICANT LABORATORY DATA: Hemoglobin 11.0, INR 1.4, creatinine 0.97. DISCHARGE MEDICATIONS: 1. Nexium 40 mg daily. 2. Amiodarone as directed. 3. Aspirin 325 mg daily. 4. Lipitor 40 mg p.o. daily. 5. Lopressor 25 mg b.i.d. 6. [place]on 5 one tablet q.4 hourly p.r.n. The patient is not in contraindication. The patient is not given SIGIFREDO inhibitor or ARB in view of systolic dysfunction because of relatively low blood pressure and at this point not indicated, but that medication will be started upon followup visit with primary care physician and Cardiology. CODE STATUS: Full code. INPATIENT MANUAL MACHINIST: Dr. Allen and CV surgery was following while in hospital. TEST RESULT PENDING ON DISCHARGE: None. DISCHARGE PLAN: Posthospital, the patient will follow up with primary care physician, Dr. Benavides, on March 07, 2019, at 2:30 p.m. The patient has appointment with Dr. Martinez on March 20, 2019 at 2:30 p.m. The patient will follow up with Cardiology. HOSPITAL COURSE: A 73-year-old male, who was admitted by Eduardo Laguna, nurse practitioner. Please see his H and P for further details. The patient was found with non-ST elevation PR. Cardiology was consulted and they did cardiac catheterization and found with multivessel CAD, required CABG which was done on March 30, 2019 without any complication. Postoperatively, the patient had blood loss anemia as well as one episode of atrial fibrillation converted to sinus rhythm with amiodarone. The patient's blood pressure was running in the little bit low and that is why SIGIFREDO inhibitor is not prescribed. He is given above-mentioned medication. The patient was discharged by Dr. Martinez with the above-mentioned medication. The patient is seen and examined at bedside today. Please see my progress note from that day for more detail. Job ID: [id number]
--- NOTE | 2019-03-06 04:28 | PQF ---
RICK ALANIS SALIM NOORJIBHAI MD [id number] CLINICAL DOCUMENTATION CLARIFICATION FORM: POST DISCHARGE Addendum to original discharge summary date: ____ Late entry note date: __ DATE: 03/06/19 ATTN: JESUS DRISCOLL Please exercise your independent, professional judgment in responding to the clarification form. Clinical indicators are provided on the bottom of this form for your review Please check appropriate box(s): HEART FAILURE: A. TYPE: [ ] Systolic / HFrEF [ ] Diastolic / HFpEF [ ] Combined Systolic / Diastolic B. ACUITY [ ] Acute [ ] Acute on Chronic [ ] Chronic [ ] No CHF [ x ] Other diagnosis _systolic and diastolic dysfunction, without heart failure [ ] Unable to determine In addition, please specify: Present on Admission (POA): [ ] Yes [ ] No [ ] Unable to determine For continuity of documentation, please document condition throughout progress notes and discharge summary. Thank You. CLINICAL INDICATORS - SIGNS / SYMPTOMS / LABS ED Notes 02/23 "presented to the ED today because he experienced two episodes of sharp chest pain and SOB" TTE 02/23 "EF is visually estimated at 45-50%" TTE 02/23 "Suggestive of diastolic dysfunction" PN 02/24 "Has reduced EF and diastolic dysfunction on echo 45%" Consult 02/26 "has been noticing decreasing exercise tolerance and some dyspnea on exertion" PN 02/28 "left lower lobe pulmonary infiltrate" PN 03/03 "likely related with atelectasis vs effusion" RISKS: ED Notes 02/23-73 years old male ED Notes 02/23-Former smoker HP 02/23-NSTEMI Consult 02/23-HLD PN 02/24-Cardiomyopathy OP Note 02/27-CAD OP Note 02/27-s/p CABG DS 03/03-Afib DS 03/03-Carotid stenosis TREATMENTS: HP 02/23-Cardiology Consult Collected 02/23-TTE OP Note 02/27-CABG Collected 02/27-Chest Xray PN 03/03-Cardiac rehab DS 03/03-[facility] MAR 03/01-Lasix 40mg IV (This form is maintained as a part of the permanent medical record) 2014 [employer], [employer]. All Rights Reserved [email or web address] [not provided] MTDD
--- NOTE | 2019-03-06 04:29 | PQF ---
RICK ALANIS SALIM NOORJIBHAI MD [id number] CLINICAL DOCUMENTATION CLARIFICATION FORM: POST DISCHARGE Addendum to original discharge summary date: ____ Late entry note date: __ DATE: 03/06/19 ATTN: JESUS DRISCOLL Please exercise your independent, professional judgment in responding to the clarification form. Clinical indicators are provided on the bottom of this form for your review Please check appropriate box(s): HEART FAILURE: A. TYPE: [ ] Systolic / HFrEF [ ] Diastolic / HFpEF [ ] Combined Systolic / Diastolic B. ACUITY [ ] Acute [ ] Acute on Chronic [ ] Chronic [ ] No CHF [ ] Other diagnosis [ ] Unable to determine In addition, please specify: Present on Admission (POA): [ ] Yes [ ] No [ ] Unable to determine For continuity of documentation, please document condition throughout progress notes and discharge summary. Thank You. CLINICAL INDICATORS - SIGNS / SYMPTOMS / LABS ED Notes 02/23 "presented to the ED today because he experienced two episodes of sharp chest pain and SOB" TTE 02/23 "EF is visually estimated at 45-50%" TTE 02/23 "Suggestive of diastolic dysfunction" PN 02/24 "Has reduced EF and diastolic dysfunction on echo 45%" Consult 02/26 "has been noticing decreasing exercise tolerance and some dyspnea on exertion" PN 02/28 "left lower lobe pulmonary infiltrate" PN 03/03 "likely related with atelectasis vs effusion" RISKS: ED Notes 02/23-73 years old male ED Notes 02/23-Former smoker HP 02/23-NSTEMI Consult 02/23-HLD PN 02/24-Cardiomyopathy OP Note 02/27-CAD OP Note 02/27-s/p CABG DS 03/03-Afib DS 03/03-Carotid stenosis TREATMENTS: HP 02/23-Cardiology Consult Collected 02/23-TTE OP Note 02/27-CABG Collected 02/27-Chest Xray PN 03/03-Cardiac rehab DS 03/03-[facility] MAR 03/01-Lasix 40mg IV (This form is maintained as a part of the permanent medical record) [address] [employer] All Rights Reserved [email or web address] [email or web address] [not provided] MTDD
[2019-03-06 11:09] LABS: Actual Bicarbonate (HCO3a) 19.4 mEq/L (22-28); Analyzer IN Cardio OR; Base Excess (BEa) -4.8 mEq/L (-2.0 to +3.0); CO2 Tension 33.5 mmHg (35.0-45.0); Calcium, Ionized 1.17 mmol/L (1.12-1.30); Carboxyhemoglobin (COHb) 0.8 gm% (0.0-3.0); Hemoglobin (Hb) 13.4 g/dL (14.0-18.0); O2 Tension (PaO2) 312.9 mmHg (> 70.0); pH, Arterial 7.38 (7.35-7.45)
[2019-03-06 11:10] LABS: Actual Bicarbonate (HCO3v) 22 mEq/L (22-28); Analyzer IN Cardio OR; Base Excess -4.2 mEq/L (-2.0 to +3.0); Calcium, Ionized 1.06 mmol/L (1.16-1.32); Chloride (ABG LAB) 105 mmol/L (98-106); Potassium - ABG Lab 5.56 mmol/L (3.70-5.30); Sodium 134.9 mmol/L (133-146); pH (venous) 7.29 (7.32-7.43)
[2019-03-06 11:10] LABS: Actual Bicarbonate (HCO3a) 19.7 mEq/L (22-28); Analyzer IN Cardio OR; Base Excess (BEa) -7.2 mEq/L (-2.0 to +3.0); CO2 Tension 45.1 mmHg (35.0-45.0); Calcium, Ionized 1.17 mmol/L (1.12-1.30); Carboxyhemoglobin (COHb) 0.6 gm% (0.0-3.0); Hemoglobin (Hb) 13.6 g/dL (14.0-18.0); Potassium - ABG Lab 4.37 mmol/L (3.70-5.30); pH, Arterial 7.26 (7.35-7.45)
[2019-03-06 11:10] LABS: Actual Bicarbonate (HCO3a) 22.8 mEq/L (22-28); Analyzer IN Cardio OR; Base Excess (BEa) -3.6 mEq/L (-2.0 to +3.0); CO2 Tension 47.5 mmHg (35.0-45.0); Calcium, Ionized 1.05 mmol/L (1.12-1.30); Carboxyhemoglobin (COHb) 0.5 gm% (0.0-3.0); O2 Tension (PaO2) 352.3 mmHg (> 70.0); Potassium - ABG Lab 5.58 mmol/L (3.70-5.30)
[2019-03-06 11:11] LABS: Analyzer IN Cardio OR; Base Excess (BEa) -3.6 mEq/L (-2.0 to +3.0); Calcium, Ionized 1.06 mmol/L (1.12-1.30); Carboxyhemoglobin (COHb) 0.2 gm% (0.0-3.0); Hemoglobin (Hb) 11.2 g/dL (14.0-18.0); Potassium - ABG Lab 5.35 mmol/L (3.70-5.30); pH, Arterial 7.34 (7.35-7.45)
[2019-03-06 11:11] LABS: Actual Bicarbonate (HCO3a) 27.3 mEq/L (22-28); Analyzer IN Cardio OR; Base Excess (BEa) 0.8 mEq/L (-2.0 to +3.0); CO2 Tension 52.5 mmHg (35.0-45.0); Calcium, Ionized 1.05 mmol/L (1.12-1.30); Carboxyhemoglobin (COHb) 0.4 gm% (0.0-3.0); Hemoglobin (Hb) 11.2 g/dL (14.0-18.0); O2 Tension (PaO2) 299.5 mmHg (> 70.0); Potassium - ABG Lab 5.23 mmol/L (3.70-5.30); pH, Arterial 7.33 (7.35-7.45)
[2019-03-06 11:12] LABS: Actual Bicarbonate (HCO3a) 20.1 mEq/L (22-28); Analyzer IN Cardio OR; Base Excess (BEa) -4.4 mEq/L (-2.0 to +3.0); Calcium, Ionized 1.11 mmol/L (1.12-1.30); Carboxyhemoglobin (COHb) 0.6 gm% (0.0-3.0); O2 Tension (PaO2) 471.1 mmHg (> 70.0); pH, Arterial 7.38 (7.35-7.45)
[2019-03-06 11:12] LABS: Puncture Site ALINE
[2019-03-06 11:12] LABS: Actual Bicarbonate (HCO3a) 22.6 mEq/L (22-28); Analyzer IN Cardio OR; Base Excess (BEa) -4.4 mEq/L (-2.0 to +3.0); CO2 Tension 49.5 mmHg (35.0-45.0); Calcium, Ionized 1.22 mmol/L (1.12-1.30); Carboxyhemoglobin (COHb) 0.6 gm% (0.0-3.0); Hemoglobin (Hb) 11.7 g/dL (14.0-18.0); O2 Tension (PaO2) 180.7 mmHg (> 70.0); Potassium - ABG Lab 4.09 mmol/L (3.70-5.30); pH, Arterial 7.28 (7.35-7.45)
[2019-03-06 11:13] LABS: Puncture Site ALINE
[2019-03-06 11:13] LABS: Puncture Site ALINE
[2019-03-06 11:14] LABS: Puncture Site ALINE
[2019-03-06 11:15] LABS: Puncture Site ALINE
[2019-03-06 11:15] LABS: Puncture Site ALINE
[2019-03-06 11:16] LABS: Puncture Site ALINE
== END 2019-03-03 16:40 | disposition home health service (06) | DRG 234 ==
LOC: ERS 00:18 → 2SE 04:30 → CCU 02-27 09:19 → 2NO 02-28 08:59
PROVIDERS: ADMIT Internal Medicine; ATTEND Internal Medicine
PROC: 4A023N7 Measurement of Cardiac Sampling and Pressure, Left Heart, Percutaneous Approach (ICD-10-PCS; 2019-02-26)
PROC: B2111ZZ Fluoroscopy of Multiple Coronary Arteries using Low Osmolar Contrast (ICD-10-PCS; 2019-02-26)
PROC: B2151ZZ Fluoroscopy of Left Heart using Low Osmolar Contrast (ICD-10-PCS; 2019-02-26)
PROC: 4A033BC Measurement of Arterial Pressure, Coronary, Percutaneous Approach (ICD-10-PCS; 2019-02-26)
PROC: 02100Z9 Bypass Coronary Artery, One Artery from Left Internal Mammary, Open Approach (ICD-10-PCS; principal; 2019-02-27)
PROC: 021209W Bypass Coronary Artery, Three Arteries from Aorta with Autologous Venous Tissue, Open Approach (ICD-10-PCS; 2019-02-27)
PROC: 06BQ4ZZ Excision of Left Saphenous Vein, Percutaneous Endoscopic Approach (ICD-10-PCS; 2019-02-27)
PROC: 5A1221Z Performance of Cardiac Output, Continuous (ICD-10-PCS; 2019-02-27)
PROC: 3E033XZ Introduction of Vasopressor into Peripheral Vein, Percutaneous Approach (ICD-10-PCS; 2019-02-27)
DX: I21.4 Non-ST elevation (NSTEMI) myocardial infarction (principal); I42.9 Cardiomyopathy, unspecified; D62 Acute posthemorrhagic anemia; E87.1 Hypo-osmolality and hyponatremia; J90 Pleural effusion, not elsewhere classified; J98.11 Atelectasis; I10 Essential (primary) hypertension; K21.9 Gastro-esophageal reflux disease without esophagitis; E78.5 Hyperlipidemia, unspecified; I51.89 Other ill-defined heart diseases; I25.118 Atherosclerotic heart disease of native coronary artery with other forms of angina pectoris; I48.0 Paroxysmal atrial fibrillation; I65.23 Occlusion and stenosis of bilateral carotid arteries; Z87.891 Personal history of nicotine dependence; Z79.899 Other long term (current) drug therapy; Z79.82 Long term (current) use of aspirin; Z88.8 Allergy status to other drugs, medicaments and biological substances
CPT/HCPCS: 36415; 36416; 36430; 71045; 80048; 80053; 80061; 80076; 82553; 82805; 83735; 84443; 84484; 85025; 85347; 85610; 85730; 86850; 86900; 86901; 93005; 93010; 93306; 93458; 93798; 93880; 94150; 94760; 99152; 99285; C1769; C9113; J0282; J0690; J1100; J1160; J1265; J1642; J1644; J1650; J1815; J1885; J1940; J2001; J2150; J2250; J2405; J2440; J2704; J2720; J3010; J3370; J3475; J3480; J3490; J7070; P9045; S0017; S0028

== ENCOUNTER 2022-08-31 07:22 | Day surgery (SDC) | payer MEDICARE ==
[2022-08-30 10:46] VITALS: BMI 27.3
[~2022-08-31 07:22] MED LIST: EPINEPHrine 0.3 MG in Ophthalmic Irrigation Solution 500 ML IRR SCH; Midazolam HCl 2 mg/2 ml Vial ONE; fentaNYL 50 mcg/mL 1 mL Vial ONE
[2022-08-31] MEDS ORDERED: Cyclopentolate 1% Opth Drop 2 ML BOT ONE (07:57)
[2022-08-31] MEDS ORDERED: Phenylephrine 2.5% Ophth Soln 5 ML BOT ONE (07:57)
[2022-08-31] MEDS ORDERED: Bupivacaine 0.75% 10 ML VIAL ONE (08:45)
[2022-08-31] MEDS ORDERED: Maxitrol 0.1% Opth Oint 3.5 GM TUBE ONE (08:45)
[2022-08-31] MEDS ORDERED: Triamcinolone 40 MG/ML VIAL ONE (08:45)
[2022-08-31] MEDS ORDERED: Lidocaine 1% PF 5 ML VIAL ONE (08:45)
[2022-08-31] MEDS ORDERED: CEFAZOLIN 1 GM VIAL ONE (08:45)
[2022-08-31] MEDS ORDERED: Indocyanine Green 25 MG/10 ML VIAL ONE (08:45)
[2022-08-31] MEDS ORDERED: Lidocaine 4% PF 5 ML AMP ONE (08:45)
[2022-08-31] MEDS ORDERED: PROPOFOL 200 MG/20 ML VIAL ONE (08:45)
== END 2022-08-31 10:22 | disposition home or self-care (01) ==
LOC: SDC 07:22
PROVIDERS: ATTEND Ophthalmology Retina Specialist
PROC: 08T53ZZ Resection of Left Vitreous, Percutaneous Approach (ICD-10-PCS; principal; 2022-08-31)
PROC: 08NF3ZZ Release Left Retina, Percutaneous Approach (ICD-10-PCS; 2022-08-31)
DX: H35.342 Macular cyst, hole, or pseudohole, left eye (principal); Z79.620 Long term (current) use of immunosuppressive biologic; Z79.82 Long term (current) use of aspirin; Z79.899 Other long term (current) drug therapy; Z95.1 Presence of aortocoronary bypass graft; Z95.820 Peripheral vascular angioplasty status with implants and grafts; Z98.49 Cataract extraction status, unspecified eye; Z96.1 Presence of intraocular lens
CPT/HCPCS: 67042; J3010; 67025; J0171; J0690; J2250; J2704; J3301; J3490